=== PATIENT | male | born 1955 | race Caucasian/White ===

== ENCOUNTER 2022-06-17 08:42 | Emergency (ER) | payer MEDICARE, MEDICAID, SELFPAY ==
[2022-06-17 08:56] VITALS: BP 128/71; BP 150/70; PULSE 60; PULSE 63; RESP 16; TEMP 36.6; O2SAT 95; O2SAT 98; BMI 25.7
--- NOTE | 2022-06-17 09:44 | ED.NEUROSD ---
HPI - Neuro Symptoms/Deficit General Chief Complaint: Neuro Symptoms/Deficit Stated Complaint: R FACIAL DROOP SINCE YESTERDAY Time Seen by Provider: 06/17/22 09:07 Source: patient Mode of arrival: EMS History of Present Illness HPI Narrative: 67-year-old male arrives via EMS with complaints of right facial droop which includes some difficulty with being able to close his eye completely and has been going on since yesterday and he denies any right upper extremity numbness/tingling/weakness but states that he has been having pain across the shoulder from the neck since yesterday and has not had his shingles vaccine. He otherwise denies any fever, chills and states he is up-to-date on his COVID and influenza vaccines. Related Data Previous Rx's Medication Instructions Recorded acyclovir 400 mg tablet 400 mg PO 5XD 7 days #35 tabs 06/17/22 prednisone 20 mg tablet 60 mg PO DAILY 6 days #18 tabs 06/17/22 Allergies Allergy/AdvReac Type Severity Reaction Status Date / Time pregabalin [From Lyrica] Allergy Confusion Verified 06/17/22 09:09 Review of Systems Review of Systems: Pertinent positives and negatives as stated in HPI 10 point review of systems otherwise negative. PMFSH Past Medical History Source: nursing notes reviewed Social History Social History Smoked in Last 30 Days: Yes Use of substances other than those prescribed or required for medical reasons: No Advance Directives: No Advance Directives Information Provided: Yes Physical Exam Vital Signs: Vital Signs: Last Vital Signs Temp 98 F 06/17/22 08:56 Pulse 63 06/17/22 08:56 Resp 16 06/17/22 08:56 BP 128/71 06/17/22 08:56 Pulse Ox 95 06/17/22 08:56 O2 Del Method 06/17/22 08:56 BMI result Body Mass Index 25.7 VITAL SIGNS: Reviewed. GENERAL: Well developed, well nourished, in no acute distress. HEAD: Normocephalic/atraumatic EYES: PERRLA, EOMI EARS: Ext canals without abnormality, TMs non-bulging and non-erythematous NOSE: Nares patent bilateral,, there is no pain to the tip of the nose OROPHARYNX: no oral lesions noted, posterior pharynx clear and non-erythematous without noted tonsillar enlargement/erythema/exudates NECK: Supple, no adenopathy, there is no vesicular rash noted from the neck over the shoulder LUNGS: Normal breath sounds. No adventitious sounds or accessory muscle use. SpO2<95> CARDIOVASCULAR: Regular rate and rhythm without noted murmurs ABDOMEN: Soft, non-tender, non-distended with bowel sounds. MUSCULOSKELETAL: No tenderness, deformities, or effusions noted on gross inspection. EXTREMITIES: No cyanosis, clubbing or edema. SKIN: Inspection of the skin reveals no rashes NEUROLOGIC: Alert and oriented x 4. Strength and sensation to light touch were grossly intact x 4, weakness on eyebrow raise, unable to completely close right eye and noted droop to right corner of the mouth Course Course Course Narrative: I have reviewed the viral testing which is negative, given the presentation of pain from the neck extending across the shoulder to the right I have concerns that this may be a developing herpes zoster/shingles and then with the Walters's palsy I reviewed the chest x-ray which did not show any evidence of mass, CT scan was negative for evidence of intracranial pathology, patient received initial steroids and acyclovir here in the emergency room and then was given strict instructions on eye care as well as completing remaining course of medications for the next week. Medical Decision Making Medical Decision Making [facility] Narrative: 67-year-old male with presentation of most likely Walters's palsy but will do two view chest x-ray as well as CT of the head and viral testing. Differential Diagnosis Differential Diagnoses: The differential diagnosis associated with the presentation includes I have low clinical suspicion for any intracranial ischemic event, and doubt lung mass. Lab Data [facility] Lab Attestation statement: I reviewed the patient's lab results. Please see the course Section for discussion Labs: Lab Results 06/17/22 06/17/22 Range/Units 10:06 10:07 COVID-19 (EMILIE) Negative (Negative) COVID-19 Clin Com See Note Influenza Type A (EMPERATRIZ) Negative (Negative) Influenza Type B (EMPERATRIZ) Negative (Negative) Influenza A & B Note See Note Radiology Impression Radiologist Impression: My interpretation is in agreement with radiology impression of the imaging studies. Critical Care Time Critical Care Time Critical Care Time: Yes Total Critical Care Time: 30 Attestation: I personally attest to this time spent taking care of the patient. Discharge Plan Discharge Clinical Impression: Walters's palsy, Herpes zoster Patient Disposition: Home, Self-Care Instructions: Shingles (ED), Walters Palsy (ED) Additional Instructions: Eye protection - artificial tears, [id number], every hour while you are awake. - ophthalmic ointment at night, you should tape your eye shut at night - limit screen time due to decreased blink rate and wear protective glasses such as sunglasses while outside to protect from the light. Facial droop - 80 mg of prednisone, daily, for 1 week (this will increased acid production, blood pressure, as well as sugar levels) Pain across neck and shoulder I have concerns that this may be a developing shingles. - Acyclovir 400 mg, 5 times a day, 1 week Follow-up with your primary care provider on Saturday morning for re-evaluation further outpatient management. Return to the ER for any worsening symptoms. Prescriptions: New prednisone 20 mg tablet 60 mg PO DAILY 6 Days Qty: 18 0RF acyclovir 400 mg tablet 400 mg PO 5XD 7 Days Qty: 35 0RF Rx Instructions: space evenly during waking hours
[2022-06-17 10:30] LABS: IDNOW Serial# BCCEAD1C; Influenza A Negative (Negative); Influenza B2 Negative (Negative)
[2022-06-17 10:30] LABS: COVID-19 Test Negative (Negative); IDNOW Serial# 16C4AD1C
== END 2022-06-17 11:32 | disposition home or self-care (01) ==
PROVIDERS: Emergency Provider Student in an Organized Health Care Education/Training Program
DX: G51.0 Bell's palsy (principal); B02.9 Zoster without complications; R51.9 Headache, unspecified; Z20.822 Contact with and (suspected) exposure to COVID-19; Z79.899 Other long term (current) drug therapy
CPT/HCPCS: 70450; 71046; 87502; 87635; 99283

== ENCOUNTER 2024-09-29 20:33 | Emergency (ER) | payer MEDICARE, MEDICAID, SELFPAY ==
--- NOTE | 2024-09-29 | ECG_ITS ---
Test Reason : CP Blood Pressure : */* mmHG Vent. Rate : 58 BPM Atrial Rate : 58 BPM P-R Int : 210 ms QRS Dur : 140 ms QT Int : 464 ms P-R-T Axes : 71 -19 41 degrees QTcB Int : 455 ms Sinus bradycardia with 1st degree A-V block with Premature atrial complexes Right bundle branch block Inferior infarct , age undetermined Abnormal ECG No previous ECGs available Referred By: Generic ED Physician Electronically Signed By: Dain Nowak
--- NOTE | ~2024-09-29 | XR_ITS ---
CLINICAL HISTORY: cp 1 view chest x-ray Comparison: CR/SR - XR CHEST 2V - 06/17/22 10:16 EST Findings: No consolidation or effusion. Normal size heart. No acute fracture. IMPRESSION: 1. No acute findings. This document has been electronically signed by: Megan Trotter MD on 09/29/2024 21:34:06
--- NOTE | ~2024-09-29 | CT_ITS ---
CLINICAL HISTORY: right side chest pain r o pe, CT angiography chest with contrast. 3D Postprocessing. Comparison: CR - XR CHEST 1V - 09/29/24 21:06 EDT Findings: The heart size is normal. RV/LV ratio is normal. The thoracic aorta is normal caliber. No pulmonary artery filling defects. The visualized thyroid and mediastinum are unremarkable. No consolidation or effusion. The visualized upper abdomen is unremarkable. No acute fractures. IMPRESSION: 1. No pulmonary emboli. No acute aortic syndrome. 2. Bibasilar atelectatic/dependent changes, lungs are otherwise clear. This document has been electronically signed by: Megan Trotter MD on 09/29/2024 22:44:15
[2024-09-29 20:40] VITALS: BP 147/67; PULSE 62; RESP 18; TEMP 36.4; O2SAT 97; BMI 25.6
--- NOTE | 2024-09-29 20:56 | PC.NURSE ---
extension service specialist in charge aware of sx.
[2024-09-29 20:58] LABS: MANUAL DIFF FLAG NO
[2024-09-29 20:59] LABS: Basophils Absolute Auto 0.1 X10*3/uL (0.0-0.2); Basophils Percent Auto 0.7 % (0-2); Eosinophils Absolute Auto 0.2 X10*3/uL (0.0-0.4); Eosinophils Percent Auto 2.2 % (0-4); Hemoglobin 15.1 g/dl (14.0-18.0); Imm Gran Abs Auto 0.03 X10*3/uL (0.00-0.03); Imm Gran Pct Auto 0.3 % (0.0-0.4); Lymphocytes Absolute Auto 3.1 X10*3/uL (1.2-4.9); Mean Corpuscular HGB Conc 34.3 g/dl (31.0-36.0); Mean Corpuscular Hemoglobin 32.8 pg (27.0-33.0); Mean Corpuscular Volume 95.4 fL (80.0-98.0); Monocytes Absolute Auto 0.5 X10*3/uL (0.1-1.2); Neutrophils Absolute Auto 5.1 x10*3/uL (2.0-8.3); Neutrophils Percent Auto 56.8 % (45-73); Platelet Count 307 X10*3/uL (160-400); Red Blood Count 4.61 X10*6/uL (4.60-5.80); Red Cell Distribution Width 13.4 % (11.0-16.0)
[2024-09-29 21:15] VITALS: BP 141/63; PULSE 59; RESP 18; O2SAT 97
[2024-09-29 21:15] LABS: Alanine Aminotransferase 25 U/L (0-40); Albumin Level 4.4 g/dL (3.5-5.0); Alkaline Phosphatase 88 U/L (39-117); Anion Gap 11 (12-20); Aspartate Amino Transferase 29 U/L (5-37); Blood Urea Nitrogen 16 mg/dL (9-16); Calcium 9.5 mg/dL (8.4-10.2); Carbon Dioxide 27 mmol/L (22-29); Chloride 104 mmol/L (96-108); Creatinine Clr Calc Pharmacy 90.6; Estimated Glomerular Filt Rate > 60; Glucose Random 110 mg/dL (60-115); Potassium 4.3 mmol/L (3.3-5.1); Sodium 138 mmol/L (135-145); Total Protein 7.6 g/dL (6.5-8.0)
[2024-09-29 21:23] LABS: Troponin-I High Sensitivity < 2.7 ng/L (<3.5-35.0)
[2024-09-29 21:31] LABS: Magnesium 2.1 mg/dL (1.6-2.6)
[2024-09-29 21:38] LABS: Influenza A PCR NEGATIVE (Negative); Influenza B PCR NEGATIVE (Negative); Resp Syncy Virus RNA Qual PCR NEGATIVE (Negative); SARS COV2 PCR INHOUSE NEGATIVE (Negative)
--- NOTE | 2024-09-29 21:39 | ED_ITS ---
HPI - Chest Pain General Chief Complaint: Chest Pain Stated Complaint: Chest pain Time Seen by Provider: 09/29/24 21:30 Source: patient and family Mode of arrival: ambulatory Limitations: no limitations History of Present Illness ED Provider: DR. Mccormack HPI narrative: 69-year-old male came in with his daughter for evaluation of right-sided chest pain started 01:00 this morning woke the patient up from sleep patient was evaluated the before coming to the ED in a walk-in clinic and was advised to come to the ED for further evaluation, pain is localized to the right chest area and radiates to the back nausea and 1 time vomiting that resolved after, no fever, no chills, no recent travel, no shortness of breath, no cough, no chest wall injury or trauma, pain has been constant since 01:00, no history of intra- abdominal surgery, no history of DVT or pulmonary embolism. Patient is an active smoker no history of cough. Patient was started recently on Linzess for IBS Related Data Previous Rx's ?Medication ?Instructions ?Recorded acyclovir 400 mg tablet 400 mg PO 5XD 7 days #35 tabs 06/17/22 prednisone 20 mg tablet 60 mg (3 x 20 mg) PO DAILY 6 days 06/17/22 #18 tabs Allergies Allergy/AdvReac Type Severity Reaction Status Date / Time pregabalin [From Lyrica] Allergy Confusion Verified 09/29/24 20:43 Review of Systems 2 Review of Systems: All other systems are reviewed and are negative Constitutional: Reports as per HPI and Reports no additional constitutional complaints Eyes: Reports as per HPI and Reports no additional eye complaints Reports system reviewed and no additional complaints, except as documented Cardiovascular: Reports as per HPI and Reports no additional cardiovascular complaints Respiratory: Reports as per HPI and Reports no additional respiratory complaints Gastrointestinal: Reports as per HPI and Reports no additional gastrointestinal complaints Genitourinary: Reports no additional female genitourinary complaints Musculoskeletal: Reports no additional musculoskeletal complaints Skin/Breast: Reports system reviewed and no additional complaints, except as docu Psychiatric: Reports no additional psychiatric complaints Endocrine: Reports no additional endocrine complaints Hematologic/Lymphatic: Reports no additional hematologic/lymphatic complaints Allergic/Immunologic: Reports no additional allergic/immunologic complaints Reports system reviewed and no additional complaints, except as documented and Reports Abnormal speech present PMFSH Social History Social History Alcohol intake: never Smoked in Last 30 Days: No Use of substances other than those prescribed or required for medical reasons: No Advance Directives: No Advance Directives Information Provided: No Do you have a plan to hurt others: No Plan Physical Exam 2 Vital Signs: Vital Signs: Last Vital Signs Temp 97.5 F 09/29/24 20:40 Pulse 68 09/29/24 22:33 Resp 14 09/29/24 22:33 BP 139/67 09/29/24 22:33 Pulse Ox 97 09/29/24 22:33 O2 Del Method Room Air 09/29/24 22:33 BMI result Body Mass Index 25.6 Vital signs have been reviewed and appear to be correct. Blood pressure elevated. Heart rate normal. Respiratory rate normal. Temperature normal. Oxygen saturation normal. Appearance: Alert. Oriented X3. No acute distress. Head: Normal external exam. Normocephalic. Atraumatic. No Moran signs noted. No raccoon eyes noted Eyes: PERRLA. EOMI. Conjunctiva and sclera normal. Eyelids normal. ENT: TM's Normal. Pharynx normal. Uvula midline. Moist mucous membranes. No trismus noted. No drooling noted. No muffled voice noted. Neck: Normal inspection. Neck supple. FROM. No adenopathy. Thyroid Normal. No meningeal signs. No neck mass noted. CVS: Normal heart rate and rhythm. Heart sound normal. No murmurs noted. Pulses normal throughout. Respiratory: No respiratory distress. Painless inspiration. Breath sounds normal. No wheezes/rales/rhonchi noted. Chest nontender. No accessory muscle usage noted or decreased air movement noted. Abdomen: Soft and nontender. Bowel sounds normal in all 4 quadrants. No distention noted. No organomegaly noted. No visible injury noted. Back: No CVA tenderness. Full range of motion noted. Skin: Skin warm and dry. Normal skin color. Normal skin turgor. No rashes/lesions/lacerations noted. Extremities: No lower extremity edema. Extremities exhibit normal range of motion. Extremities nontender. Neuro: Oriented X 3. Cranial nerve exam: II-XII are grossly intact No motor deficit. No sensory deficit. Reflexes normal. Course Reevaluation(s) Reevaluation #1: 69-year-old male came in with right side chest pain, no risk for pulmonary embolism with negative D-dimer and a negative CTA. No right upper quadrant tenderness, no Dumont's sign, normal LFTs, chest CT are consistent with diagnosis of gallbladder disease. Patient is improving with Toradol and morphine. VSS, sinus bradycardia at 58 beats per minute, first-degree AV block with PACs, with no old EKG to compare. Time: 23:38 Medications Administered Discontinued Medications Generic Name Dose Route Start Last Admin Trade Name Freq PRN Reason Stop Dose Admin Iohexol 65 ml 09/29/24 22:13 09/29/24 22:14 Iohexol 350 Mg/Ml 100 Ml Infus..Btl IV 09/29/24 22:14 65 ml ONCE ONE Administration Medical Decision Making Differential Diagnosis Differential Diagnoses: The differential diagnosis associated with the presentation includes (ACS, pulmonary embolism, muscular pain, pneumonia, pneumothorax, pleural effusion, chest wall deal, rib fracture) Admission/Observation Consideration of admission/observation: Escalation of care including admission/observation considered Lab Data [facility] Lab Attestation statement: I reviewed the patient's lab results. 09/29/24 20:54 09/29/24 20:54 Labs: Lab Results 09/29/24 09/29/24 Range/Units 20:54 21:49 WBC 9.0 (4.8-10.8) X10*3/uL RBC 4.61 (4.60-5.80) X10*6/uL Hgb 15.1 (14.0-18.0) g/dl Hct 44.0 (42.0-52.0) % MCV 95.4 (80.0-98.0) fL MCH 32.8 (27.0-33.0) pg MCHC 34.3 (31.0-36.0) g/dl RDW 13.4 (11.0-16.0) % Plt Count 307 (160-400) X10*3/uL MPV 9.0 L (9.4-12.4) fL Immature Gran % (Auto) 0.3 (0.0-0.4) % Neut % (Auto) 56.8 (45-73) % Lymph % (Auto) 35.0 (20-40) % [place] % (Auto) 5.0 (2-11) % Eos % (Auto) 2.2 (0-4) % Baso % (Auto) 0.7 (0-2) % Lymph # (Auto) 3.1 (1.2-4.9) X10*3/uL [place] # (Auto) 0.5 (0.1-1.2) X10*3/uL Eos # (Auto) 0.2 (0.0-0.4) X10*3/uL Baso # (Auto) 0.1 (0.0-0.2) X10*3/uL Abs Immat Gran (auto) 0.03 (0.00-0.03) X10*3/uL Absolute Neuts (auto) 5.1 (2.0-8.3) x10*3/uL Absolute Nucleated RBC 0.000 (0.0-0.012) X10*3/uL Nucleated RBC % (auto) 0.0 (0.0-0.2) /100WBC D-Dimer High Sensitivty < 150 NG/ML Sodium 138 (135-145) mmol/L Potassium 4.3 (3.3-5.1) mmol/L Chloride 104 (96-108) mmol/L Carbon Dioxide 27 (22-29) mmol/L Anion Gap 11 L (12-20) BUN 16 (9-16) mg/dL Creatinine 0.78 (0.5-1.4) mg/dL Estim Creat Clear Calc 90.6 Estimated GFR > 60 Random Glucose 110 (60-115) mg/dL Calcium 9.5 (8.4-10.2) mg/dL Magnesium 2.1 (1.6-2.6) mg/dL Total Bilirubin 1.0 (0.0-1.0) mg/dL AST 29 (5-37) U/L ALT 25 (0-40) U/L Alkaline Phosphatase 88 (39-117) U/L Troponin I High Sens < 2.7 (<3.5-35.0) ng/L Total Protein 7.6 (6.5-8.0) g/dL Albumin 4.4 (3.5-5.0) g/dL Influenza Type A (PCR) NEGATIVE (Negative) Influenza Type B (PCR) NEGATIVE (Negative) RSV RNA Qual (PCR) NEGATIVE (Negative) SARS-CoV-2 RNA (RT-PCR) NEGATIVE (Negative) Independent Interpretation I performed an independent interpretation of an: Plain X-Ray (No acute pathology.) and CT Scan (CT angio: no pathology.) Radiology Impression Discussion of test interpretation with radiology: I have reviewed the radiologist's reading. Discharge Plan Discharge Clinical Impression: Chest pain Patient Disposition: Home, Self-Care Instructions: Chest Pain (ED) Prescriptions: No Action prednisone 20 mg tablet 60 mg PO DAILY 6 Days Qty: 18 0RF acyclovir 400 mg tablet 400 mg PO 5XD 7 Days Qty: 35 0RF Rx Instructions: space evenly during waking hours Print Language: Nepali
--- OUTSIDE RECORDS SUMMARY | 2024-09-29 21:50 | XMS_ITS | Patient Health Record ---
Author Organization [facility] Address [address] [place] [address] Care Team Providers Care Platform Power Technician Name Role Phone Rojas Barraza Unavailable [phone] Yamini Gonzalez Unavailable [phone] Allergies Allergen (clinical drug ingredient) Drug/Non Drug Allergy documented on EMR Reaction Allergy Type Onset Date Status pregabalin Lyrica Unknown Drug Allergy Active Results Component Value Reference Range Notes PMG UDS Screening Reviewed date:12/05/2023 10:21:00 AM Interpretation:appro Performing Lab:, [address] [place], [address] Notes/Report: Reason For Referral Reason Please refer to NORBERT Joseph for surgical evaluation Appointment 12/14/2022@9:10am Diagnosis 1 Primary osteoarthrit is, right shoulder (M19.011) Referral Organization [facility] Referring Provider First Name Yamini Referring Provider Last Name Carlos Referring Provider Speciality Nurse Prac titioner Referred Provider Opal TOUSSAINT Referred Provider Specialty Orthopedic S urgery General Notes Amelia Smith ([facility] ) 12/07/2022 08:21:10 AM >Per provider request referral faxed to NORBERT Joseph ph.[phone] Latrice ([facility]) 12/12/2022 12:13:55 PM >Appointment 12/14/2022 w/ Dr. Braun in [place].Flaco Latrice ([facility]) 02/06/2023 11:44:34 AM >Sent request for update.Flaco Latrice ([facility]) 04/01/2023 11:41:06 AM >Sent request for consult note, Perla Sam ([facility]) 08/15/2023 04:03:34 PM >I called and was told the patient was seen . Was transferred to the OK and left a message requesting the consult note, Perla Sam (PN) 01/08/2024 10:54:22 AM >I called and spoke to the care team coordinator scheduler and was told the patient has been seen a few times since his referral was sent over. The care team coordinator scheduler transferred me to ([place] ) and I left a requesting those consult notes., Tran Banuelos ([facility]) 01/09/2024 12:18:59 PM >Note attached Referral Priority Routine Referral Appointment Date 12/14/2022 Reason 10.29.23 RT SHOULDER SUPRASCAPULAR NB x1 Diagnosis 1 Primary osteoarthrit is, right shoulder (M19.011) Referral Organization [facility] [place] Referring Provider First Name Yamini Referring Provider Last Name Carlos Referring Provider Speciality Nurse [facility] Referred Organization [address] in [facility] Referred Provider Rojas Barraza Referred Address [address] [place] [phone], Referred Provider Specialty Pain Medicin e Procedure 1 N BLOCK INJ- SUPRASC APULAR (98902) General Notes Zara Lucero (PN) 10/04/2023 12:17:22 PM >Zara Lucero ([facility]) 10/04/2023 07:25:24 AM > Ady, please change the SS RFA appt to this SSNB. Send order back to me once this appt is booked. Thank you., Alma Delia Veras ([facility]) 10/04/2023 08:03:35 AM > fixed. Nic cunningham Pamela ([facility]) 10/04/2023 12:16:57 PM > No Authorization Required, Service Type, 1 - Medical Care, Place of Service, 24 - [facility], Service From - To Date, 2023-10-292023-12-22, Quantity, 1 Visits, Level of Service, Elective, Diagnosis Code 1, I14819 - Primary osteoarthritis right shoulder, Procedure Code 1, 91804 - NJX AA & /STRD SPRSCAP NRV, Quantity, 1 Visits, Status, NO AUTH REQUIRED, Code 54265 x1 for RT Shoulder for DOS 10/29/23, ALEXSANDRA Barraza, Dx.M19.011; OK to proceed. Referral Priority Routine Reason CXLD-01.14.24 RT CHAPARRITA ULDER SSRFA x1 Diagnosis 1 Primary osteoarthrit is, right shoulder (M19.011) Referral Organization [address] [facility] Referring Provider First Name Yamini Referring Provider Last Name Carlos Referring Provider Speciality Nurse Peng mendoza Referred Organization [address] Referred Provider Rojas Barraza Referred Address [address] [place], [place],[address],[place] Referred Provider Specialty Pain Medicin e Procedure 1 INJECTION TREATMENT OF NERVE (14600) General Notes Zara Lucero ([facility]) 12/04/2023 09:13:22 AM >Zara Lucero ([facility]) 12/04/2023 08:41:16 AM CDT > Submitted auth request w/ order and clinical notes to [facility] [employer] via website for RT SSRFA code 69912 x1 for DOS 12/31/23, ALEXSANDRA Barraza, Dx. M19.011; request pended for review under ref#[id number]., Zara Lucero ([facility]) 12/04/2023 09:10:55 AM CDT > [facility] [employer] approved RT Shoulder SSRFA code 90049 x1 from 12/31/2023 - 01/13/2024; auth#[id number]; OK to proceed. Referral Priority Routine Reason 02.11.24 RT SHOULDER SS RFA x1 Diagnosis 1 Primary osteoarthrit is, right shoulder (M19.011) Referral Organization [address] [facility] Referring Provider First Name Yamini Referring Provider Last Name Carlos Referring Provider Speciality Nurse Peng mendoza Referred Organization [address] Referred Provider Rojas Barraza Referred Address [address] [place], [place],[address],[place] Referred Provider Specialty Pain Medicin e Procedure 1 INJECTION TREATMENT OF NERVE (91112) General Notes Zara Lucero (PNM) 01/28/2024 11:02:40 AM >Zara Lucero (PNM) 12/04/2023 08:41:16 AM CDT > Submitted auth request w/ order and clinical notes to [facility] for [employer] via website for RT SSRFA code 75863 x1 for DOS 12/31/23, ALEXSANDRA Barraza, Dx. M19.011; request pended for review under ref#[id number]., Zara Lucero (PNM) 12/04/2023 09:10:55 AM CDT > [facility] for [employer] approved RT Shoulder SSRFA code 41992 x1 from 12/31/2023 - 01/13/2024; auth#[id number]; OK to proceed.Nic Pamela (PNM) 01/10/2024 03:27:11 PM CDT > Resubmitted auth request submitted to [facility] for RT SS RFA code 00678 x1 for new DOS 01/14/24, ALEXSANDRA Barraza, Dx. M19.011; request pended for review under ref#[id number]., Zara Lucero (PNM) 01/13/2024 07:04:44 AM CDT > Per [facility] website for [employer], request still in review under ref#[id number]., Alma Delia Veras (PN) 01/13/2024 03:39:03 PM CDT > Alma Delia Veras (PN) 01/13/2024 03:37:29 PM CDT >, Spoke with pt made a f/u appt. He is going to call back when in he is back in town to r/s procedure. ceNic Pamela (PNM) 01/15/2024 07:07:14 AM CDT > [employer] approved RT SS RFA code 51887 x1 from 01/14/24 to 01/27/24; auth# [id number]. Pt has rescheduled to outside the new date range, will need to resubmit again for this new DOS.Nic Pamela (PNM) 01/27/2024 08:30:50 AM CDT > Submitted auth request to [employer] for [employer] via website for RT Shoulder SS RFA code 56488 x1 for new DOS 02/11/24, ALEXSANDRA Barraza, Dx. M19.011; request pended for review under ref# [id number].Nic Pamela ([facility]) 01/28/2024 11:02:08 AM CDT > [employer] for [employer] approved RT Shoulder SS RFA code 46266 x1 from 02/11/2024 - 02/25/2024; auth# [id number]; OK to proceed with new DOS 02/11/24. Referral Priority Routine Reason CXLD-05.05.24 REPEAT LT CRFA x1 at C4-5, C5-6 Diagnosis 1 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 (M47.812) Referral Organization [facility] [place] Referring Provider First Name Yamini Referring Provider Last Name Carlos Referring Provider Speciality Nurse Prac titioner Referred Organization [address] in [facility] Referred Provider Rojas Barraza Referred Address [address] [place] [phone], Referred Provider Specialty Pain Medicin e Procedure 1 DESTROY CERV/THOR FA CET JNT (16570) Procedure 2 DESTROY C/TH FACET J NT ADDL (14649) General Notes Zara Lucero ([facility]) 04/15/2024 09:53:15 AM >Zara Lucero ([facility]) 04/13/2024 02:02:46 PM CDT > pending the 04/07/24 note being locked to submit., Zara Lucero ([facility]) 04/15/2024 09:02:31 AM CDT > Submitted auth request w/ order and clinical notes to [facility] for [employer] via website for repeat LT CRFA codes 96210 & 17878 for DOS 05/05/24, ALEXSANDRA Barraza, Dx. M47.812; request pended for review under ref# [id number].Nic Pamela ([facility]) 04/15/2024 09:52:47 AM CDT > [facility] for [employer] approved repeat LT CRFA codes 01448 & 21890 from 05/05/2024 - 05/18/2024; auth# [id number]; OK to proceed. Referral Priority Routine Reason CXLD-06.02.24 REPEAT LT LRFA x1 at L4-5, L5-S1 Diagnosis 1 Spondylosis of lumba r region without myelopathy or radiculopathy (M47.816) Referral Organization [facility] [place] Referring Provider First Name Yamini Referring Provider Last Name Carlos Referring Provider Speciality Nurse Prac titioner Referred Organization [address] [place] in [facility] Referred Provider Rojas Barraza Referred Address [address] [place], [place],[address], Referred Provider Specialty Pain Medicin e Procedure 1 DESTROY LUMB/SAC FAC ET JNT (89248) Procedure 2 DESTROY L/S FACET JN T ADDL (23898) General Notes Zara Lucero ([facility]) 05/25/2024 07:52:01 AM >Zara Lucero ([facility]) 05/12/2024 02:20:40 PM CLIENT SUPPORT ANALYST > Called [facility] ([phone]) to initiate request due to currently being locked out of their portal. Spoke to Claribel to intiate request for repeat LT LRFA codes 75856 & 71196 for DOS 06/02/24, ALEXSANDRA Barraza, Dx. M47.816; request pended for review under case# [id number]; faxed order and notes to [facility] at Attn: Nurse Reviewer at [phone]., Zara Lucero ([facility]) 05/25/2024 07:51:34 AM CLIENT SUPPORT ANALYST > [facility] LRFA codes 14649 & 96290 have been approved from 06/02/2024 - 06/15/2024; auth# [id number]; OK to proceed. Referral Priority Routine Medications Medication SIG (Take, Route, Frequency, Duration) Notes Start Date End Date Status methylPREDNISolone 4 MG as directed Orally as directed for 365 days Lugoff into 1 nostril for suspected opioid overdose. Repeat in alternate nostril if no response every 2 minutes until EMS arrives. Active Gabapentin 300 MG 2 capsule Orally three times a day for 30 days Fill when due. Exempt. 04/07/2024 Active Lisinopril 10 MG 1 tablet Orally Once a day Active methylPREDNISolone 4 MG as directed Orally as directed for 6 days Active diazePAM 10 MG as directed Orally Once a day Active Lexapro 20 MG 1 tablet Orally Once a day Active Narcan 4 MG/0.1ML as directed Nasally as directed for 30 days Active tiZANidine HCl 4 MG 1 tablet as needed Orally Three times a day Not-Taking Symbicort 160-4.5 MCG/ACT 2 puffs Inhalation Twice a day Not-Taking Naproxen 500 MG 1 tablet with food or milk as needed Orally every 12 hrs for 30 days Fill when due. Exempt. Active HYDROcodone-Acetaminophe n 10-325 MG 1 tablet as needed Orally every 6 hrs for 30 days fill when due, exempt 06/02/2024 Active Problems Problem Type SNOMED Code ICD Code Onset Dates Problem Status W/U Status Risk Notes Problem Localized, primary osteoarthritis of the shoulder region (911448747) Primary osteoarthritis, right shoulder (M19.011) Active confirmed Problem Other calcification of muscle, right shoulder (M61.411) Active confirmed Problem Impingement syndrome of shoulder region (936483615) Impingement syndrome of right shoulder (M75.41) Active confirmed Problem High risk drug monitoring status (978076542) intermodal dispatcher (current) use of opiate analgesic (Z79.891) Active confirmed Problem Cervical radiculopathy (96686932) Cervical radiculopathy (M54.12) Active confirmed Problem Lumbosacral spondylosis without myelopathy (15343299) Spondylosis of lumbar region without myelopathy or radiculopathy (M47.816) Active confirmed Problem Cervical spondylosis without myelopathy (530401423) Spondylosis of 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 (M47.812) Active confirmed Problem Arthritis of acromioclavicular joint (disorder) (444814764) AC (acromioclavicula r) joint arthritis (M19.019) Active confirmed Problem Radiculopathy due to lumbar intervertebral disc disorder (897938320328296) Radiculopathy due to disorder of intervertebral disc of lumbar spine (M51.16) Active confirmed Vital Signs Heart Rate 73 /min 04/07/2024 Blood pressure diastolic 63 mm Hg 04/07/2024 Height-cm 177.8 cm 04/07/2024 Weight-kg 80.74 kg 04/07/2024 Height 70 in 04/07/2024 Blood pressure systolic 115 mm Hg 04/07/2024 Weight 178 lbs 04/07/2024 BMI 25.54 kg/m2 04/07/2024 Procedures Procedure Date Ordered Date Performed Result Body Sit e Suprascapular NB - Right 10/03/2023 FLIP 06/24 Suprascapular RFA - Right 12/02/2023 02/11/2024 85% relief notedc Lumbar RFA - Left 04/07/2024 Approved 06/24 Encounters Encounter Location Date Provider Diagnosis [address] [facility] [address] [facility] [place] [place] [address] 10/29/2023 Rojas Barraza Primary osteoarthritis, right shoulder M19.[address] [facility] [place] [address] 02/11/2024 Rojas Barraza Primary osteoarthritis, right shoulder M19.011 [facility] [address] [place] [address] 01/14/2024 Yamini Gonzalez intermodal dispatcher (current) use of opiate analgesic Z79.891 ; Spondylosis of 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 M47.812 ; Primary osteoarthritis, right shoulder M19.011 ; Spondylosis of lumbar region without myelopathy or radiculopathy M47.816 and Radiculopathy due to disorder of intervertebral disc of lumbar spine M51.16 [facility] [address] [place] [address] 04/07/2024 Yamini Gonzalez intermodal dispatcher (current) use of opiate analgesic Z79.891 ; Spondylosis of 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 M47.812 ; Primary osteoarthritis, right shoulder M19.011 ; Spondylosis of lumbar region without myelopathy or radiculopathy M47.816 and Radiculopathy due to disorder of intervertebral disc of lumbar spine M51.16 [facility] [place] [address] [facility] [place] [address] 12/02/2023 Yamini Gonzalez long-term (current) use of opiate analgesic Z79.891 [facility] [address] [place] [address] 10/03/2023 Yamini Gonzalez Spondylosis of 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 M47.812 ; Primary osteoarthritis, right shoulder M19.011 ; long-term (current) use of opiate analgesic Z79.891 ; Spondylosis of lumbar region without myelopathy or radiculopathy M47.816 and Radiculopathy due to disorder of intervertebral disc of lumbar spine M51.16 [facility] [place] [address] [place] [address] 12/02/2023 Yamini Gonzalez intermodal dispatcher (current) use of opiate analgesic Z79.891 ; Spondylosis of 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 M47.812 ; Primary osteoarthritis, right shoulder M19.011 ; Spondylosis of lumbar region without myelopathy or radiculopathy M47.816 and Radiculopathy due to disorder of intervertebral disc of lumbar spine M51.16 [facility] [place] [address] [facility] [place] [address] 02/11/2024 Rojas Barraza [facility] [place] [address] [facility] [place] [address] 12/27/2023 Rojas Barraza [facility] [place] [address] [facility] [place] [address] 10/03/2023 Yamini Gonzalez Assessments Encounter Date Diagnosis (ICD Code) Assessment Notes Treatment Notes Treatment Clinical Notes 04/07/2024 long-term (current) use of opiate analgesic (ICD-10 - Z79.891) Requesting medications refilled w/o changesIncreased,will cont to monitor -, Narcan noted-prescribed per [place] State Guidelines Per MD treatment plan, opiate therapy continues to be Indicated per MD orders, refill and continue opiate medications w/o changes.CSMD checked w/o concern Random drug screen to be collected in the future to ensure compliance Pill count: due to fill We re-discussed the black box warning regarding the risks of combining opioids with BZDs and the role of Narcan for rescue. Advised to speak with their prescribing provider about the lowest effective dose or switching to a safer alternative, if available. Re-educated on if an opioid overdose occurs or is suspected, Narcan may temporarily reverse the effects of the opioid and help keep the patient breathing until emergency medical assistance is available. 02/11/2024 Primary osteoarthritis, right shoulder (ICD-10 - M19.011) 01/14/2024 long-term (current) use of opiate analgesic (ICD-10 - Z79.891) Requesting medications refilled w/o changesNo changes,will cont to monitor -, Narcan noted-prescribed per [place] State Guidelines Per MD treatment plan, opiate therapy continues to be Indicated per MD orders, refill and continue opiate medications w/o changes.CSMD checked w/o concern Random drug screen to be collected in the future to ensure compliance Random UDS appropriatePill count: due to fill due to procedure being pending We re-discussed the black box warning regarding the risks of combining opioids with BZDs and the role of Narcan for rescue. Advised to speak with their prescribing provider about the lowest effective dose or switching to a safer alternative, if available. Re-educated on if an opioid overdose occurs or is suspected, Narcan may temporarily reverse the effects of the opioid and help keep the patient breathing until emergency medical assistance is available. 12/02/2023 intermodal dispatcher (current) use of opiate analgesic (ICD-10 - Z79.891) Urine drug screen today is medically indicated to validate the patient's medication compliance and lack of illicit substances. Requesting medications refilled w/o changesNo changes,will cont to monitor -, Narcan noted-prescribed per [place] State Guidelines Per MD treatment plan, opiate therapy continues to be Indicated per MD orders, refill and continue opiate medications w/o changes.CSMD checked w/o concern Random drug screen to be collected to ensure compliance Pill count: appropriate We re-discussed the black box warning regarding the risks of combining opioids with BZDs and the role of Narcan for rescue. Advised to speak with their prescribing provider about the lowest effective dose or switching to a safer alternative, if available. Re-educated on if an opioid overdose occurs or is suspected, Narcan may temporarily reverse the effects of the opioid and help keep the patient breathing until emergency medical assistance is available. 12/02/2023 long-term (current) use of opiate analgesic (ICD-10 - Z79.891) 10/29/2023 Primary osteoarthritis, right shoulder (ICD-10 - M19.011) 10/03/2023 Spondylosis of 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 (ICD-10 - M47.812) Remains unchanged Medications refilled today w/o changes Alternate ice therapy/warm compress, as needed for pain Q15 minutes PRN pain Relief continues from prior RT/LT CRFA with more than 85% relief noted and continues today. 10/03/2023 Primary osteoarthritis, right shoulder (ICD-10 - M19.011) PT in the past Increased Meds refilled today w/o changes today-take as directed MDP requested ADR/SE discussed-take as directed; Toradol IM given today after consent. Pt aware to hold other NSAIDS until tomorrow. Reassess next visit. Pt is c/o increased pain to rt shouder today. Prior IASI with benefit. Prior manipulation w/o benefit. Pt is requesting to pursue RT shoulder SCNB. Risk vs beenfit discussed. Ordered today. Reassess after procedure. Alternate ice therapy/warm compress, as needed for pain Q15 minutes PRN pain 12/02/2023 Spondylosis of 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 (ICD-10 - M47.812) Remains unchanged Medications refilled today w/o changes Alternate ice therapy/warm compress, as needed for pain Q15 minutes PRN pain Relief continues from prior RT/LT CRFA with more than 85% relief noted and continues today. 10/03/2023 long-term (current) use of opiate analgesic (ICD-10 - Z79.891) Requesting medications refilled w/o changesNo changes,will cont to monitor -, Narcan noted-prescribed per [place] State Guidelines Per MD treatment plan, opiate therapy continues to be Indicated per MD orders, refill and continue opiate medications w/o changes.CSMD checked w/o concern Random drug screen to be collected in the future to ensure compliance Pill count: appropriate 01/14/2024 Spondylosis of 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 (ICD-10 - M47.812) Stable/Unchanged Medications refilled today w/o changes-take as directed Alternate ice therapy/warm compress, as needed for pain Q15 minutes PRN pain Ongoing relief from RT/LT CRFA with more than 85% relief noted and continues today. Continues HEP PT in the past 04/07/2024 Spondylosis of 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 (ICD-10 - M47.812) Increased Medications refilled today w/o changes-take as directed Alternate ice therapy/warm compress, as needed for pain Q15 minutes PRN pain The patient has had prior cervical radio radiofrequency (02/05/23) in the past with excellent pain relief ( 85 %) for greater than 6 months with a VAS score 3/10. Pt was able to do ADLs with less pain, had improved sleep, and able to do housework. The pain is now returning in the same area as prior to the treatment. Pt has been unable to tolerate noninvasive conservative care and failed to repsond to PT, NSAIDS, muscle relaxers, neuropathic medications, HEP, and ice/low heat therapy for more than 6 weeks. Physical exam suggests facet disease with pain noted on extension and lateral rotation of the spine over the facet joints in question. Given their excellent results from prior radiofrequency ablation, I will go ahead and proceed with repeat radiofrequency ablation at the same levels as previously treated without a revalidation test medial branch nerve block. Risks and benefits were explained to the patient, questions answered, and they wish to proceed. Continues HEP PT in the past 04/07/2024 Primary osteoarthritis, right shoulder (ICD-10 - M19.011) PT in the past Improved Medications refilled today w/o changes-take as directed Alternate ice therapy/warm compress, as needed for pain Q15 minutes PRN pain S/P SC RFA with more than 85% relief continuing today. VAS 3/10. Pt is able to drive easier, lift with less pain. PT in the pastMDP completed in the past-benefit noted. Prior IASI with benefit. Prior manipulation w/o benefit. 01/14/2024 Primary osteoarthritis, right shoulder (ICD-10 - M19.011) PT in the past Not controlled Meds refilled today w/o changes today-take as directed MDP completed in the past-benefit noted. .Prior IASI with benefit. Prior manipulation w/o benefit. Pending SC RFA to be r/s as pending insurande approval as pts insurnace change 12/23/23. Alternate ice therapy/warm compress, as needed for pain Q15 minutes PRN pain 12/02/2023 Primary osteoarthritis, right shoulder (ICD-10 - M19.011) PT in the past Increased Meds refilled today w/o changes today-take as directed MDP completed-benefit noted. Pt is c/o increased pain to rt shoulder today. Prior IASI with benefit. Prior manipulation w/o benefit. S/P RT SC NB with more than 85% relief x 1 week. Requesting to pursue SC RFA-risk vs benefits discussed and pt wishes to pursue, Ordered today. Alternate ice therapy/warm compress, as needed for pain Q15 minutes PRN pain 10/03/2023 Spondylosis of lumbar region without myelopathy or radiculopathy (ICD-10 - M47.816) Remains unchanged Medications refilled today w/o changes Alternate ice therapy/warm compress, as needed for pain Q15 minutes PRN painPrior RT LRFA 07/16/23 with more than 85% relief noted and VAS 3/10. Pt has been able to drive easier, walk more. Continue to monitor. Ongoing relief from LT LRFA continues today more than 85% relief noted HEP as tolerated 10/03/2023 Radiculopathy due to disorder of intervertebral disc of lumbar spine (ICD-10 - M51.16) Remains unchanged Medications refilled today w/o changesAlternate ice therapy/warm compress, as needed for pain Q15 minutes PRN painPrior RT LRFA 07/16/23 with more than 85% relief noted and VAS 3/10. Pt has been able to drive easier, walk more. Continue to monitor. Ongoing relief from LT LRFA continues today more than 85% relief noted HEP as tolerated 12/02/2023 Spondylosis of lumbar region without myelopathy or radiculopathy (ICD-10 - M47.816) Remains unchanged Medications refilled today w/o changes Alternate ice therapy/warm compress, as needed for pain Q15 minutes PRN painPrior RT LRFA 07/16/23 with more than 85% relief noted and VAS 3/10. Pt has been able to drive easier, walk more. Continue to monitor. Ongoing relief from LT LRFA continues today more than 85% relief noted HEP as tolerated 01/14/2024 Spondylosis of lumbar region without myelopathy or radiculopathy (ICD-10 - M47.816) Stable/Unchanged Medications refilled today w/o changes-take as directed Alternate ice therapy/warm compress, as needed for pain Q15 minutes PRN pain Ongoing relief from RT/LT LRFA with more than 85% relief noted and continues today. Continues HEP PT in the past 04/07/2024 Spondylosis of lumbar region without myelopathy or radiculopathy (ICD-10 - M47.816) Increased Medications refilled today w/o changes-take as directed Alternate ice therapy/warm compress, as needed for pain Q15 minutes PRN pain -Pt is s/p SC RFA with more than 85% relief continuing today. VAS 3/10. Pt is able to drive easier, lift with less pain. The patient has had prior lumbar radio radiofrequency (07/16/23) in the past with excellent pain relief ( 85 %) for greater than 6 months with a VAS score 3/10. Pt was able to do ADLs with less pain, had improved sleep, and able to do housework. The pain is now returning in the same area as prior to the treatment. Pt has been unable to tolerate noninvasive conservative care and failed to repsond to PT, NSAIDS, muscle relaxers, neuropathic medications, HEP, and ice/low heat therapy for more than 6 weeks. Physical exam suggests facet disease with pain noted on extension and lateral rotation of the spine over the facet joints in question. Given their excellent results from prior radiofrequency ablation, I will go ahead and proceed with repeat radiofrequency ablation at the same levels as previously treated without a revalidation test medial branch nerve block. Risks and benefits were explained to the patient, questions answered, and they wish to proceed. Continues HEP PT in the past 04/07/2024 Radiculopathy due to disorder of intervertebral disc of lumbar spine (ICD-10 - M51.16) Stable/Unchanged Medications refilled today w/o changes-take as directed Alternate ice therapy/warm compress, as needed for pain Q15 minutes PRN pain Consider DON with LRAD Ongoing relief from RT/LT LRFA with more than 85% relief noted and continues today. Continues HEP PT in the past 01/14/2024 Radiculopathy due to disorder of intervertebral disc of lumbar spine (ICD-10 - M51.16) Stable/Unchanged Medications refilled today w/o changes-take as directed Alternate ice therapy/warm compress, as needed for pain Q15 minutes PRN pain Consider DON with LRAD Ongoing relief from RT/LT LRFA with more than 85% relief noted and continues today. Continues HEP PT in the past 12/02/2023 Radiculopathy due to disorder of intervertebral disc of lumbar spine (ICD-10 - M51.16) Remains unchanged Medications refilled today w/o changesAlternate ice therapy/warm compress, as needed for pain Q15 minutes PRN painPrior RT LRFA 07/16/23 with more than 85% relief noted and VAS 3/10. Pt has been able to drive easier, walk more. Continue to monitor. Ongoing relief from LT LRFA continues today more than 85% relief noted HEP as tolerated Plan Of Treatment Pending Test Test Name Order Date DME 04/10/2022 Lumbar RFA - Left 04/07/2024 Suprascapular NB - Right 10/03/2023 X-ray Shoulder Min 2V, Right 06/09/2021 X-ray Cervical Sp 4-5V 11/02/2020 PNM Shoulder Injection - Right 2 Insurance Providers Payer Name Payer Address Payer Phone Subscriber Number Group Number Insured Name Patient Relationship to Insured Coverage Start Date Coverage End Date [facility] [employer] [place] [address] [address] [place] [address] [id number] Fermin Fletcher Self - patient is the insured 4 [facility] MEDICAID 1 [facility] [address] [place] [address] [phone] [id number] Fermin Fletcher Self - patient is the insured 3 Medications Administered Medication Instructions Date of Administration Dosage Notes Ketorolac Tromethamine 10/03/2023 60 mg Medical (General) History Medical History History ICD Code Radiculopathy Surgical History Surgery Date(Month/Year) cervical cyst Hospitalization History Reason Date(Month/

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
--- OUTSIDE RECORDS SUMMARY | 2024-09-29 21:50 | XMS_ITS | Continuity of Care Document ---
Author Organization [facility] Address [address] [place] [phone] Phone Care Team Providers Care Blood Bank Credit Clerk Name Role Phone Kush Braun MD Unavailable Unavailable Allergies, Adverse Reactions, Alerts Substance Reaction Status Criticality No Known Allergies Active No Inform ation Medications Medication Instructions Dosage Effective Dates (start - stop) Status Comments Medrol (Omari) 4 mg tablets in a dose pack take by oral route as directed per package instructions 0.00 - Active diazepam 10 mg tablet take 1 tablet by oral route 3 times every day 10 MG - Active HYDROCODONE-ACETAM INOPHEN (unknown strength) take 1 tablet by oral route every 6 hours as needed for pain Not Available - Active GABAPENTIN (unknown strength) take 1 capsule by oral route 3 times every day Not Available - Active Procedures Procedure Date EST PATNT OV DTL EXAM Medications - Current Meds Documented X-RAY OF C-SPINE 2 OR 3 VIEWS EST PATNT OV DTL EXAM X-RAY OF SHOULDER (COMPLETE) 2 V MIN. NEW PATNT OV MOD COMP Advance Directives Directive Yes / No Effective Date File Name No Information Encounters Encounter Description Practice Location Reason(s) For Visit Diagnoses Date Provider Providers Copied on Encounter EST PATNT OV DTL EXAM [facility], [address], [place], [place], [id number], [place] tel:[phone] [facility] Follow Up of Right shoulder (chief complaint) Tear of right rotator cuff, unspecified tear extent, unspecified whether traumaticRadi culopathy, cervical region 3 Kade Currie. [address] [place] [address], [address], [place], [place], [id number] , [place]. tel:[phone] Referring Provider: Kush Jimenez, [address] [place] [address] [address], [place], [address] . tel:[phone] [facility] [address] [place] [address], [id number], [place] tel:[phone] [facility] Geronimo Rt Shoulder (chief complaint) Radiculopathy , cervical region 3 Kade Currie. [address] [place] [address], [address], [place], [place], [id number] , [place]. tel:[phone] Referring Provider: Kush Jimenez, [address] [place] [address] [address], [place], [address] . tel:[phone] [facility] [address], [place], [place], [id number], [place] tel:[phone] [facility] Right shoulder pain (chief complaint) Pain in right shoulderTear of right rotator cuff, unspecified tear extent, unspecified whether traumaticRadi culopathy, cervical region 3 Kade Currie. [address] [place] [address], [address], [place], [place], [id number] , [place]. tel:[phone] Family History Family Member Type Diagnosis Age At Onset No Information Payers Payer name Insurance type Covered republican ID Authoriza timackenzie(s) Medicare [id number] Medicaid [facility] [id number] Social History Type Description Quantity Date Captured Comments Alcohol Use Details Unknown Caffeine Use Details Unknown Tobacco Use Status No Information Smoking Status No Information Sex Male Chief Complaint And Reason For Visit From encounter dated '01/21/2023 11:40'. Follow Up of Right shoulder (chief complaint) Reason For Referral Reason For Referral No Information History Of Present Illness Encounter Date Complaint History Of Prese nt Illness Follow Up of Right shoulder Geronimo Rt Shoulder Right shoulder pain Functional Status Date Functional Assessmen t No Information Instructions Date Instruction Additional Infor karlos - Medication refills must be requested before 4pm Saturday through Saturday Related to Radiculopathy, cervical region - Patient education available at [email or web address] on the Education tab Related to Radiculopathy, cervical region Steroid instructions Assessments Type Assessment Date assessment Tear of right rotato r cuff, unspecified tear extent, unspecified whether traumatic assessment Radiculopathy, cervical region J Patient Care Teams Name Effective Dates (start - stop) Status Members No Information
--- OUTSIDE RECORDS SUMMARY | 2024-09-29 21:51 | XMS_ITS ---
Author Organization [facility] Address [address] [place] [address] Care Team Providers Care Carnival Worker Name Role Phone Rojas Barraza Unavailable [phone] REASON FOR VISIT CERVICAL RFA- LEFT C4-5, 5-6 Medications Medication SIG (Take, Route, Frequency, Duration) Notes Start Date End Date Status Lisinopril 10 MG 1 tablet Orally Once a day Active Naproxen 500 MG 1 tablet with food or milk as needed Orally every 12 hrs for 30 days Fill when due. Exempt. Active Gabapentin 300 MG 2 capsule Orally three times a day for 30 days Fill when due. Exempt. 04/07/2024 Active methylPREDNISolone 4 MG as directed Orally as directed for 365 days [place] into 1 nostril for suspected opioid overdose. Repeat in alternate nostril if no response every 2 minutes until EMS arrives. Active methylPREDNISolone 4 MG as directed Orally as directed for 6 days Active tiZANidine HCl 4 MG 1 tablet as needed Orally Three times a day Not-Taking Lexapro 20 MG 1 tablet Orally Once a day Active HYDROcodone-Acetaminophe n 10-325 MG 1 tablet as needed Orally every 6 hrs for 30 days fill when due, exempt 05/05/2024 Active diazePAM 10 MG as directed Orally Once a day Active Narcan 4 MG/0.1ML as directed Nasally as directed for 30 days Active Symbicort 160-4.5 MCG/ACT 2 puffs Inhalation Twice a day Not-Taking Encounters Encounter Location Date Provider Diagnosis [facility] [address] [place] [address] 05/05/2024 Rojas Barraza 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 M47.812 Assessments Encounter Date Diagnosis (ICD Code) Assessment Notes Treat ment Notes Treatment Clinical Notes 05/05/2024 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 NPO status was confirmed SEDATION: ____ MEDICATION ADMINISTERED: 2% Lidocaine 1m l per level to anesthetize skin and subcutaneous tissues 2% Lidocaine 1ml per level for RFA sites PREP: Site was prepped usi ng standard aseptic technique NEEDLE TYPE: 25 gauge, 1.5 inch PROCEDURE: With alternatives, r isks, and benefits having been reviewed and written informed consent obtained, the patient was brought into the procedure room and placed in a lateral position on the procedure table. Monitors were placed including a grounding pad over the hip. The skin overlying the paramedial aspect of the cervical spine was prepped in a sterile fashion. Allowed to dry prior to injection and draped in a sterile fashion. Lidocaine was administered through a 1.5-inch 25-gauge needle as a local skin and subcutaneous anesthetic over each injection site. Next, a radio frequency cannula with a 5mm active tip was placed mid body of the targeted vertebrae(s) tonsillar pillar in a sagittal plane. Proper cannula placement was confirmed by a 2.0 Hz motor stimulation testing utilizing [employer]'s MG2 Generator and subjective-objective patient feedback. Proper needle confirmation was then viewed in both AP and lateral views. Motor testing did not reveal ventral ramus stimulation. When confirmation was satisfactory, 2% Lidocaine was injected through the cannula to minimize discomfort. Medial nerve lesioning was performed at 80 degrees Celsius for 60 seconds. The cannula(s) was afterwards removed intact at each injection site. Afterwards, the patient was transferred to stepdown in stable condition and was monitored for approximately 20 minutes. The patient was then discharged home with a ride and post-procedure instructions, including directions to contact the office should severe pain, signs of infection, or any new motor-sensory deficits develop.___ cm probes, Load numbers ___, Indicator strip black, Grounding pad placed on ____ LEVEL/LATERALITY: Level (Cervical 1):: C4-5 Laterality:: Left Level (Cervical 2):: C5-6 Laterality:: Left CANNULA TYPE: 22 gauge curved radi o frequency cannula with 5mm active tip Vitals (1) TIME: BLOOD PRESSURE, mmHq (1): HEART RATE, BPM (1): RESPIRATION/MIN (1): ____ O2 SAT PERCENT (1): ____ O2 L/min (via NC) (1): ____ EKG (1): ___ ETCO2 (1): ___ PAIN LEVEL (1-10) (1): __/10 RN ROOM NUMBER: ____ PROCEDURE NURSE: ____ EDUCATIONAL TECHNOLOGY SPECIALIST: ____ X-RAY CONTRACT MANAGER: ____ IN ROOM TIME: ____ TIME OUT TIME: ____ START TIME: ___ END TIME: ___ OUT TIME: ___ ECG: ____ SAFE SURGERY CHECKLIST: Completed PRE-OP DIAGNOSIS: M47.812 POST-OP DIAGNOSIS: Same IV FLUID: None POSITION: Lateral ESTIMATED BLOOD LOSS: Less than 1mL EQUIPMENT ISSUES: No Discharge DISCHARGE TIME: ____ IN POST-OP: ____ DISCHARGE NURSE: ____ POST-OP PROCEDURE: Patient transported to post procedure area alert and oriented x3, skin warm and dry. Airway patent and ventilating deep and regular. Denies any weakness or numbness and able to move all extremities and ambulating well. Band-Aid dressing dry and intact. Discharge instructions (oral and written) given to patient and family. Patient verbalized understanding HEPLOCK: Hep-Lock discontinue d side clear no active bleeding and catheter intact PATIENT ACCOUNTANCY PROFESSOR: ____ PATIENT STABLE: Yes ALL QUESTIONS ADDRESSED: Yes Progress Notes * Fermin FLETCHERDOB:1955 ( 69 yo M)Acc No.[id number]:05/05/2024 Patient:?Fermin FLETCHER Provider:?Rojas Barraza MD :1955???Age:68 Y???Sex:Male Damaso e:05/05/2024 Address:[address] [place], [place] [id number] Subjective: * Chief Complaints: * ???1. CERVICAL RFA- LEFT C4- 5, 5-6. * HPI: ???RN History of Present Complaint:?NPO STATUS:?Last liquids at Midnight.?RESPIRATORY:?Denies Hx.?CARDIAC:?Denies Hx.?GI:?Denies Hx.?PLANNED PROCEDURE VERIFIED:?Yes.?BLOOD THINNERS:?Denies.?ANTIBIOTICS:?None taken in the last 2 weeks.?PRE-OP NURSE:?____.?SEDATION:?___.?BLOODBOURNE PATHOGENS:?None.?DIABETES:?No.?STIMULATORS:?____.?LMP:?N/A.?PRE-OP TIME:?____.? * ROS:?General/Constitutional:?Infection?denies.?Bleeding?denies.?Unusual bleeding?denies.?Chills?denies.?Fever?denies.?Respiratory:?Shortness of breath at rest?denies.?Cardiovascular:?Chest pain?denies.? * Medical History:? * Medications:?Taking Narcan 4 MG/0.1ML Liquid as directed Nasally as directed , Taking diazePAM 10 MG Gel as directed Orally Once a day , Taking Lexapro 20 MG Tablet 1 tablet Orally Once a day , Taking Lisinopril 10 MG Tablet 1 tablet Orally Once a day , Taking methylPREDNISolone 4 MG Tablet Therapy Pack as directed Orally as directed , Taking methylPREDNISolone 4 MG Tablet Therapy Pack as directed Orally as directed , Notes to Pharmacist: [place] into 1 nostril for suspected opioid overdose. Repeat in alternate nostril if no response every 2 minutes until EMS arrives., Taking Gabapentin 300 MG Capsule 2 capsule Orally three times a day , Notes to Pharmacist: Fill when due. Exempt., Taking Naproxen 500 MG Tablet 1 tablet with food or milk as needed Orally every 12 hrs , Notes to Pharmacist: Fill when due. Exempt., Taking HYDROcodone-Acetaminophen 10-325 MG Tablet 1 tablet as needed Orally every 6 hrs , Notes to Pharmacist: fill when due, exempt, Not-Taking Symbicort 160-4.5 MCG/ACT Aerosol 2 puffs Inhalation Twice a day , Not-Taking tiZANidine HCl 4 MG Tablet 1 tablet as needed Orally Three times a day , Medication List reviewed and reconciled with the patient Objective: * Vitals:? Assessment: * Assessment: 1.?Spondylosis of cervical r egion without myelopathy or radiculopathy - M47.812 (Primary)??? Plan: * Treatment: * Procedures:?Vitals:?(1) TIME:? .?BLOOD PRESSURE, mmHq (1):? .?HEART RATE, BPM (1):? .?RESPIRATION/MIN (1):?____.?O2 SAT PERCENT (1):?____.?O2 L/min (via NC) (1):?____.?EKG (1):?___.?ETCO2 (1):?___.?PAIN LEVEL (1-10) (1):?__/10.?Surgical Procedure:?MIPS MEASURES: ?Fluoroscopy Time Under CR:?15 seconds ?Number of Images:?2 image(s) ?CONSENT:?Alternatives, risks, and benefits were reviewed with the patient, and written informed consents were obtained.?NPO status was confirmed.?SEDATION:?____.?LEVEL/LATERALITY: ?Level (Cervical 1):?C4-5 ?Laterality:?Left ?Level (Cervical 2):?C5-6 ?Laterality:?Left ?MEDICATION ADMINISTERED:?2% Lidocaine 1ml per level to anesthetize skin and subcutaneous tissues ?2% Lidocaine 1ml per level for RFA sites .?NEEDLE TYPE:?25 gauge, 1.5 inch.?CANNULA TYPE:?22 gauge curved radio frequency cannula with 5mm active tip.?PREP:?Site was prepped using standard aseptic technique.?PROCEDURE:?With alternatives, risks, and benefits having been reviewed and written informed consent obtained, the patient was brought into the procedure room and placed in a lateral position on the procedure table. Monitors were placed including a grounding pad over the hip. The skin overlying the paramedial aspect of the cervical spine was prepped in a sterile fashion. Allowed to dry prior to injection and draped in a sterile fashion. Lidocaine was administered through a 1.5-inch 25-gauge needle as a local skin and subcutaneous anesthetic over each injection site. Next, a radio frequency cannula with a 5mm active tip was placed mid body of the targeted vertebrae(s) tonsillar pillar in a sagittal plane. Proper cannula placement was confirmed by a 2.0 Hz motor stimulation testing utilizing [employer]'s MG2 Generator and subjective-objective patient feedback. Proper needle confirmation was then viewed in both AP and lateral views. Motor testing did not reveal ventral ramus stimulation. When confirmation was satisfactory, 2% Lidocaine was injected through the cannula to minimize discomfort. Medial nerve lesioning was performed at 80 degrees Celsius for 60 seconds. The cannula(s) was afterwards removed intact at each injection site. Afterwards, the patient was transferred to [facility] in stable condition and was monitored for approximately 20 minutes. The patient was then discharged home with a ride and post-procedure instructions, including directions to contact the office should severe pain, signs of infection, or any new motor- sensory deficits develop. ?___ cm probes, Load numbers ___, Indicator strip black, Grounding pad placed on ____.?RN:?ROOM NUMBER:?____.?PROCEDURE NURSE:?____.?EDUCATIONAL TECHNOLOGY SPECIALIST:?____.?X-RAY CONTRACT MANAGER:?____.?IN ROOM TIME:?____.?TIME OUT TIME:?____.?START TIME:?___.?END TIME:?___.?OUT TIME:?___.?ECG:?____.?SAFE SURGERY CHECKLIST:?Completed.?PRE-OP DIAGNOSIS:?M47.812.?POST-OP DIAGNOSIS:?Same.?IV FLUID:?None.?POSITION:?Lateral.?ESTIMATED BLOOD LOSS:?Less than 1mL.?EQUIPMENT ISSUES:?No.?Discharge:?DISCHARGE TIME:?____.?IN POST-OP:?____.?DISCHARGE NURSE:?____.?POST-OP PROCEDURE:?Patient transported to post procedure area alert and oriented x3, skin warm and dry. Airway patent and ventilating deep and regular. Denies any weakness or numbness and able to move all extremities and ambulating well. Band-Aid dressing dry and intact. Discharge instructions (oral and written) given to patient and family. Patient verbalized understanding.?HEPLOCK:?Hep-Lock discontinued side clear no active bleeding and catheter intact.?PATIENT ACCOUNTANCY PROFESSOR:?____.?PATIENT STABLE:?Yes.?ALL QUESTIONS ADDRESSED:?Yes.? * Procedure Codes:?27324 DESTR OY CERV/THOR FACET JNT, 80023 DESTROY C/TH FACET JNT ADDL, G8907 Pt doc no events on discharg, G8918 PT NO PREOP ORD IV ABX SSI PROPH, G9500 Rad expos ind/exp tm doc * * Electronic signature of Lenny Barraza MD on 09/29/2024 at 08:51 PM CDT Sign off status: Pending * Provider:?Rojas Barraza MD Date:?2023 Generated for Mc joyce/Donnie/Kathi on:?09/29/2024 08:51 PM CDT History and Physical Notes * HPI (History of Present Illness) Category Sub-Category Detail Notes RN History of Present Complaint NPO STATUS: Last liquids at Midnight RESPIRATORY: Denies Hx CARDIAC: Denies Hx GI: Denies Hx PLANNED PROCEDURE VERIFIED: Yes BLOOD THINNERS: Denies ANTIBIOTICS: None taken in the la st 2 weeks PRE-OP NURSE: ____ SEDATION: ___ BLOODBOURNE PATHOGENS: None DIABETES: No STIMULATORS: ____ LMP: N/A PRE-OP TIME: ____
--- OUTSIDE RECORDS SUMMARY | 2024-09-29 21:51 | XMS_ITS ---
Author Organization [facility] Address [address] [place] [address] Care Team Providers Care Offender Job Retention Specialist Name Role Phone Rojas Barraza [phone] REASON FOR VISIT Lumbar Radiofrequency Ablation, Left, Alma Delia Veras (PNM) 06/01/2024 03:20:34 PM CHEMICAL LAB TECHNICIAN > Pt canceled procedure does not want. He is out of town for the holidays and wants to see how long he can do without injections and medications. ce Medications Medication SIG (Take, Route, Frequency, Duration) Notes Start Date End Date Status methylPREDNISolone 4 MG as directed Orally as directed for 365 days [place] into 1 nostril for suspected opioid overdose. Repeat in alternate nostril if no response every 2 minutes until EMS arrives. Active Gabapentin 300 MG 2 capsule Orally three times a day for 30 days Fill when due. Exempt. 04/07/2024 Active tiZANidine HCl 4 MG 1 tablet as needed Orally Three times a day Not-Taking Symbicort 160-4.5 MCG/ACT 2 puffs Inhalation Twice a day Not-Taking Naproxen 500 MG 1 tablet with food or milk as needed Orally every 12 hrs for 30 days Fill when due. Exempt. Active Lisinopril 10 MG 1 tablet Orally Once a day Active methylPREDNISolone 4 MG as directed Orally as directed for 6 days Active diazePAM 10 MG as directed Orally Once a day Active Lexapro 20 MG 1 tablet Orally Once a day Active Narcan 4 MG/0.1ML as directed Nasally as directed for 30 days Active HYDROcodone-Acetaminophe n 10-325 MG 1 tablet as needed Orally every 6 hrs for 30 days fill when due, exempt 06/02/2024 Active Encounters Encounter Location Date Provider Diagnosis [facility] [address] [facility] [place] [address] 06/02/2024 Rojas Barraza 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 Monitors were placed, including a grounding pad. Site was prepped and draped using standard aseptic technique. The skin and subcutaneous tissue(s) at the procedure site(s) were locally anesthetized. Next, radio frequency cannula was introduced and fluoroscopically guided to the junction of the applicable superior articular process(es) and transverse process(es) using an oblique approach. Proper cannula placement at each procedure site was confirmed by motor stimulation testing utilizing a radiofrequency generator, [employer]'s MG2, and subjective-objective patient feedback. When confirmation was satisfactory, the medication mixture was injected to minimize discomfort before a medial nerve lesion was performed for ___ seconds at ___ degree Celsius. The cannula(s) were removed intact. The procedure site(s) were cleansed, the Band-aid(s) were applied. The patient tolerated the procedure well and there were no complications. Afterwards, the patient was transferred from the procedure room in stable condition and discharged home with a ride and post-procedure instructions, including directions to contact the office should severe pain, signs of infection, or any new motor-sensory deficits develop___ cm probes, Load numbers ___, Indicator strip black, Grounding pad placed on ___ LEVEL/LATERALITY: Level (Lumbar 1):: L4-5 Laterality:: Left Level (Lumbar 2):: L5-S1 Laterality:: Left CANNULA TYPE: 20 gauge curved radi o frequency cannula with 10mm active tip Vitals (1) TIME: BLOOD PRESSURE, mmHq (1): HEART RATE, BPM (1): RESPIRATION/MIN (1): ____ O2 SAT PERCENT (1): ____ O2 L/min (via NC) (1): ____ EKG (1): ___ ETCO2 (1): ___ PAIN LEVEL (1-10) (1): __/10 RN ROOM NUMBER: ____ PROCEDURE NURSE: ____ IMPORT SPECIALIST: ____ X-RAY ROAD TEST EXAMINER: ____ IN ROOM TIME: ____ TIME OUT TIME: ____ START TIME: ___ END TIME: ___ OUT TIME: ___ ECG: ____ SAFE SURGERY CHECKLIST: Completed PRE-OP DIAGNOSIS: M47.816 POST-OP DIAGNOSIS: Same IV FLUID: None POSITION: Prone ESTIMATED BLOOD LOSS: Less than 1mL EQUIPMENT [...] no active bleeding and catheter intact PATIENT CONTRACTING ENGINEER: ____ PATIENT STABLE: Yes ALL QUESTIONS ADDRESSED: Yes Progress Notes * Fermin FLETCHERDOB:1955 ( 69 yo M)Acc No.[id number]:06/02/2024 Patient:?Fermin FLETCHER Provider:?Rojas Barraza MD :1955???Age:68 Y???Sex:Male Damaso e:06/02/2024 [id number] Subjective: * Chief Complaints: * ???1. Lumbar Radiofrequency Ablation, Left. 2. Alma Delia Veras (PNM) 06/01/2024 03:20:34 PM CHEMICAL LAB TECHNICIAN > Pt canceled procedure does not want. He is out of town for the holidays and wants to see how long he can do without injections and medications. ce. * HPI: ???RN History of Present Complaint:?NPO STATUS:?Last liquids at Midnight, Last solids at Midnight.?RESPIRATORY:?Denies Hx.?CARDIAC:?Denies Hx.?GI:?Denies Hx.?PLANNED PROCEDURE VERIFIED:?Yes.?BLOOD [...] Orally as directed , Notes to Pharmacist: [place] into 1 nostril for suspected opioid overdose. [...] * Vitals:? 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 Plan: * Treatment: * Procedures:?Vitals:?(1) TIME:? .?BLOOD PRESSURE, mmHq (1):? .?HEART RATE, BPM (1):? .?RESPIRATION/MIN (1):?____.?O2 SAT PERCENT (1):?____.?O2 L/min (via NC) (1):?____.?EKG (1):?___.?ETCO2 (1):?___.?PAIN LEVEL (1-10) (1):?__/10.?Surgical Procedure:?MIPS MEASURES: ?Fluoroscopy Time Under CR:?15 seconds ?Number of Images:?2 image(s) ?CONSENT:?Alternatives, risks, and benefits were reviewed with the patient, and written informed consents were obtained.?NPO status was confirmed.?SEDATION:?____.?LEVEL/LATERALITY: ?Level (Lumbar 1):?L4-5 ?Laterality:?Left ?Level (Lumbar 2):?L5-S1 ?Laterality:?Left ?MEDICATION ADMINISTERED:?2% Lidocaine 1ml per level to anesthetize? skin and subcutaneous tissues?2% Lidocaine 1ml per level for RFA sites? ? ?.?NEEDLE TYPE:?25 gauge, 1.5 inch.?CANNULA TYPE:?20 gauge curved radio frequency cannula with 10mm active tip.?PREP:?Site was prepped using standard aseptic technique.?PROCEDURE:?The patient was brought into the procedure room and placed on the procedure table. Monitors were placed, including a grounding pad. Site was prepped and draped using standard aseptic technique. The skin and subcutaneous tissue(s) at the procedure site(s) were locally anesthetized. Next, radio frequency cannula was introduced and fluoroscopically guided to the junction of the applicable superior articular process(es) and transverse process(es) using an oblique approach. Proper cannula placement at each procedure site was confirmed by motor stimulation testing utilizing a radiofrequency generator, [employer]'s MG2, and subjective-objective patient feedback. When confirmation was satisfactory, the medication mixture was injected to minimize discomfort before a medial nerve lesion was performed for ___ seconds at ___ degree Celsius. The cannula(s) were removed intact. The procedure site(s) were cleansed, the Band-aid(s) were applied. The patient tolerated the procedure well and there were no complications. Afterwards, the patient was transferred from the procedure room in stable condition and discharged home with a ride and post- procedure instructions, including directions to contact the office should severe pain, signs of infection, or any new motor-sensory deficits develop ?___ cm probes, Load numbers ___, Indicator strip black, Grounding pad placed on ___.?RN:?ROOM NUMBER:?____.?PROCEDURE NURSE:?____.?IMPORT SPECIALIST:?____.?X-RAY ROAD TEST EXAMINER:?____.?IN ROOM TIME:?____.?TIME OUT TIME:?____.?START TIME:?___.?END TIME:?___.?OUT TIME:?___.?ECG:?____.?SAFE SURGERY CHECKLIST:?Completed.?PRE-OP DIAGNOSIS:?M47.816.?POST-OP DIAGNOSIS:?Same.?IV FLUID:?None.?POSITION:?Prone.?ESTIMATED BLOOD LOSS:?Less than 1mL.?EQUIPMENT ISSUES:?No.?Discharge:?DISCHARGE TIME:?____.?IN POST-OP:?____.?DISCHARGE [...] clear no active bleeding and catheter intact.?PATIENT CONTRACTING ENGINEER:?____.?PATIENT STABLE:?Yes.?ALL QUESTIONS ADDRESSED:?Yes.? * Procedure Codes:?30477 DESTR OY LUMB/SAC FACET JNT, 71903 DESTROY L/S FACET JNT ADDL, G8907 Pt doc no events on discharg, G8918 PT NO PREOP ORD IV ABX SSI PROPH, G9500 Rad expos ind/exp tm doc * * Electronic signature of Lenny Barraza MD on 09/29/2024 at 08:51 PM CDT Sign off status: Pending * Provider:?Rojas Barraza MD Date:?2023 Generated for Mc joyce/Donnie/eTransmitting on:?09/29/2024 08:51 PM CDT History and Physical Notes * HPI (History of Present Illness) Category Sub-Category Detail Notes RN History of Present Complaint NPO STATUS: Last liquids at Midnight, Last solids at Midnight RESPIRATORY: Denies Hx CARDIAC: Denies Hx GI: Denies Hx PLANNED PROCEDURE VERIFIED: Yes BLOOD THINNERS: Denies ANTIBIOTICS: None taken in the la st 2 weeks PRE-OP NURSE: ____ SEDATION: ___ BLOODBOURNE PATHOGENS: None DIABETES: No STIMULATORS: ____ LMP: N/A PRE-OP TIME: ____
--- OUTSIDE RECORDS SUMMARY | 2024-09-29 21:51 | XMS_ITS ---
Author Organization [facility] Address [address] [place] [address] Care Team Providers Care Settlement Processor Name Role Phone Rojas Barraza Unavailable [phone] CarlosYamini Unavailable [phone] Allergies Allergen (clinical drug ingredient) Drug/Non Drug Allergy documented on EMR Reaction Allergy Type Onset Date Status pregabalin Lyrica Unknown Drug Allergy Active REASON FOR VISIT Post-Op Follow Up Medications Medication SIG (Take, Route, Frequency, Duration) Notes Start Date End Date Status Lisinopril 10 MG 1 tablet Orally Once a day Active Lexapro 20 MG 1 tablet Orally Once a day Active diazePAM 10 MG as directed Orally Once a day Active methylPREDNISolone 4 MG as directed Orally as directed for 365 days [place] into 1 nostril for suspected opioid overdose. Repeat in alternate nostril if no response every 2 minutes until EMS arrives. Active methylPREDNISolone 4 MG as directed Orally as directed for 6 days Active Naproxen 500 MG 1 tablet with food or milk as needed Orally every 12 hrs for 30 days Fill when due. Exempt. Active HYDROcodone-Acetaminophe n 10-325 MG 1 tablet as needed Orally every 6 hrs for 30 days fill when due, exempt 04/07/2024 Active Gabapentin 300 MG 2 capsule Orally three times a day for 30 days Fill when due. Exempt. 04/07/2024 Active Narcan 4 MG/0.1ML as directed Nasally as directed for 30 days Active tiZANidine HCl 4 MG 1 tablet as needed Orally Three times a day Not-Taking Symbicort 160-4.5 MCG/ACT 2 puffs Inhalation Twice a day Not-Taking Vital Signs Blood pressure systolic 115 mm Hg 04/07/20 24 Blood pressure diastolic 63 mm Hg 024 Heart Rate 73 /min 04/07/2024 Height 70 in 04/07/2024 Weight 178 lbs 04/07/2024 BMI 25.54 kg/m2 04/07/2024 Height-cm 177.8 cm 04/07/2024 Weight-kg 80.74 kg 04/07/2024 Procedures Procedure Date Ordered Date Performed Result Body Sit e Lumbar RFA - Left 04/07/2024 Approved 06/24 Encounters Encounter Location Date Provider Diagnosis [facility] [address] [place] [address] 04/07/2024 Yamini [facility] (current) use of opiate analgesic Z79.891 ; Spondylosis of 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 M47.812 ; Primary osteoarthritis, right shoulder M19.011 ; Spondylosis of lumbar region without myelopathy or radiculopathy M47.816 and Radiculopathy due to disorder of intervertebral disc of lumbar spine M51.16 Assessments Encounter Date Diagnosis (ICD Code) Assessment Notes Treat ment Notes Treatment Clinical Notes 04/07/2024 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 04/07/2024 Spondylosis of cervical region without myelopathy [...] IASI with benefit. Prior manipulation w/o benefit. 04/07/2024 Spondylosis of lumbar region without myelopathy [...] today. Continues HEP PT in the past Plan Of Treatment Medication Medication Name Sig Start Date Stop Date Notes ZTlido 1.8 % 1 patch remove after 12 hours Externally Once a day for 30 days apply to low back, shoulders, neck Naproxen 500 MG 1 tablet with food o r milk as needed Orally every 12 hrs for 30 days Fill when due. Exempt. HYDROcodone-Acetaminoph en 10-325 MG 1 tablet as needed Orally every 6 hrs for 30 days 04/07/2024 fill when due, exempt Gabapentin 300 MG 2 capsule Orally thr ee times a day for 30 days 04/07/2024 Fill when due. Exempt. Treatment Notes Assessment Notes Primary osteoarthritis, right shoulder P T in the past Pending Test Test Name Order Date Lumbar RFA - Left 04/07/2024 Next Appt Details Follow Up: 4 Weeks, Reason: Progress Notes * Fermin FLETCHERDOB:1955 ( 68 yo M)Acc No.[id number]:04/07/2024 Patient:?Fermin FLETCHER Appointment Provider:?Yamini Gonzalez NP :[id number]???Age:68 Y???Sex:Male Damaso e:04/07/2024 Address:[address] [place], [place] [id number] Subjective: * Chief Complaints: * ???Post-Op Follow Up * HPI: ???History of Present Illness:? --Pt presents in office today at [facility] for continued treatment of their chronic pain condition. -Location of pain is noted to be in neck, Lsx and shoulders.? -Continues HEP. PT in the past. -Pt is s/p SC RFA with more than 85% relief continuing today. VAS 3/10. Pt is able to drive easier, lift with less pain.? -The patient has had prior cervical radio?radiofrequency (02/05/23) in the past with excellent pain [...] questions answered, and they wish to proceed. -The patient has had prior lumbar radio?radiofrequency (07/16/23)?in the past with excellent pain relief ( [...] questions answered, and they wish to proceed. --Pain is described as dull throbbing ache, sharp in neck. Denies CRAD.? --Pain in low back is a nagging ache with stabbing, burning that is localized to low back. Denies LRAD.? --Pain in shoulder is an throbbing ache that comes and goe.? --Pain is better with medications, CRFA, LRFA, SCRFA, repositioning. --Worse with twisting, bending down, standing a long time, extension. --Denies any new falls, denies changes in loss of bowel/bladder, no saddle anesthesia, denies acute urinary retention, denies changes in weakness. --Pain medication allows patient to be more functional. --Requesting a refill today. Adverse Effects - none reported today --Activity - Medication allows increased ability for normal day-to-day activities, chores and/or work with less pain.--Analgesia - produces reasonable analgesic effects --Aberrant Behaviors - none noted --Affect - normal affect, calm and cooperative --We will keep total morphine equivalent dosing as low as possible and consider other treatments, modalities, therapy and dose reductions on an ongoing basis. ? Without medications, pain is 8/10 and with medications, pain is 4-6/10. Patient reports that medications help to sleep, be more active, do home chores. Denies receiving PAIN medication from other providers. Current [facility]: 02/13/2024 HYDROCODONE-ACETAMIN 10-325 MG 120.00 30 187 [id number] 02/11/2024 [id number] 40.00 N N [id number] 03 02/13/2024 GABAPENTIN 300 MG CAPSULE 180.00 30 187 [id number] 02/11/2024 [id number] - N N [id number] 03 01/14/2024 GABAPENTIN 300 MG CAPSULE 180.00 30 187 [id number] 01/14/2024 [id number] - N N [id number] 03 01/14/2024 HYDROCODONE-ACETAMIN 10-325 MG 120.00 30 187 [id number] 01/14/2024 [id number] 40.00 N N [id number] 03 12/03/2023 HYDROCODONE-ACETAMIN 10-325 MG 120.00 30 187 [id number] 12/02/2023 [id number] 40.00 N N [id number] 03 12/03/2023 GABAPENTIN 300 MG CAPSULE 180.00 30 1879 [id number] 12/02/2023 [id number] - N N [id number] 03 Permission received from patient to release the office note today, copy of imaging, if requested, narcotic agreement and consent for treatment to?[facility]. [facility] [place]. This is good for todays date of service only. ???Pill Count:?Medication:?02/13/2024 HYDROCODONE-ACETAMIN 10-325 MG 120.00 (0) M367.?Imaging Studies/Clinical Pathways:? =====Past Results (Pain Mgmt) : Sep 21, 2021 15:00 Acc num [id number] unknown PROCEDURE: MRI RIGHT SHOULDER WITHOUT CONTRAST HISTORY:Primary osteoarthritis, unspecified shoulder Impingement syndrome of right shoulder Other calcification of muscle, right shoulder chronic r shoulder pngetting worseno inj no surg no cano prior M19.019 Primary osteoarthritis, unspecified shoulder M75.41 Impingement syndrome of right shoulder M61.411 Other calcification of muscle, right shoulder COMPARISONS: RIGHT shoulder series 06/09/2021. FINDINGS: There is tendinopathy supraspinatus tendon insertion with full-thickness tear of the far anterior fibers insertion measuring 9 mm in AP dimension with no significant retraction. Tendinopathy infraspinatus and subscapularis tendon insertions which are intact. Teres minor tendon insertion intact and unremarkable. No fatty atrophy rotator cuff muscle belly. Visualized portions deltoid musculature unremarkable. The bicipital labral anchor is intact. No definite labral tear, detachment, or para labral cyst. Moderate hypertrophic degenerative changes acromioclavicular joint with reactive edema-like marrow signal. Marrow signal otherwise unremarkable shoulder. No fracture or osteonecrosis. No significant articular cartilage defect or joint effusion. Small amount of fluid subacromial-subdeltoid bursa. IMPRESSION: 1. Tendinopathy supraspinatus tendon insertion with full-thickness tear of the far anterior fibers insertion measuring 9 mm in AP dimension with no significant retraction. 2. Tendinopathy infraspinatus and subscapularis tendon insertions which are intact. 3. Moderate hypertrophic degenerative changes acromioclavicular joint with reactive edema-like marrow changes. == 11/02/2020 - PROCEDURE: CERVICAL SPINE, 4 VIEWS FLEXION AND EXTENSION COMPARISONS: 2016. FINDINGS: Prevertebral soft tissues: Normal. Alignment in neutral position: Minimal scoliosis. 2 mm retrolisthesis C3, 4 mm retrolisthesis of C5. Vertebral movement with flexion and extension: Slight interval reduction with flexion of the C5 retrolisthesis. Vertebral body height: Normal. Disk spaces: Moderate disc space narrowing with osteophytes C5-C7. Fracture(s): None. Facets: Facet arthropathy throughout the mid cervical spine. Bone mineralization: Normal. IMPRESSION: Degenerative changes similar prior. Minimal stability C5-6. 07/19/2017: MRI cervical spine IMPRESSION per radiologist: 1. At C2-3: Mild effacement of the anterior thecal sac. No significant neural foraminal narrowing. 2. At C3-4: Mild spinal canal narrowing centrally. Mild bilateral neural foraminal narrowing. 3. At C4-5: Mild spinal canal narrowing. Mild LEFT lateral recess narrowing. Mild LEFT and minimal RIGHT neural foraminal narrowing 4. At C5-6: Mild to moderate spinal canal narrowing. Moderate bilateral neural foraminal narrowing. 5. At C6-7: Mild spinal canal narrowing. Mild to moderate LEFT and mild RIGHT neural foraminal narrowing. --------- 07/19/17 -MRI lumbar spine - IMPRESSION per radiologist: 1. Multilevel degenerative changes with spinal canal and neural foraminal narrowing as described above, overall similar compared to prior exam. 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 Please see the body of the report for full details. 11/20/2018: Xray of the Thoracic Spine Mild scoliosis with mild degenerative changes. TREATMENT COURSE: Lumbar RFA - Right 07/02/2023 Cervical RFA - Left 02/05/2023 85% relief Lumbar RFA - Right 10/30/2022 85% relief noted Lumbar RFA - Left 07/10/2022 85% relief noted MBNB - Right 09/04/2022 85% relief noted 04/10/2022 DME Cervical RFA - Right 05/08/2022 85% relief noted MBNB - Right 03/13/22 85% relief x 1 day MBNB Right 01/02/22 85% relief per p PNM Shoulder Injection 10/10/2021 PNM Lumbar RFA - Left L3,4,5 85% relief noted PNM Cervical RFA - LEFT 60% BENEFIT PNM Lumbar RFA -LEFT L3,4,5 90% relief. ???Violations:? Violations (Pain Mgmt) : 10/10/21 Short pill count: 11 pills short. Pt admits overuse. Pt is counselled on taking medications as prescribed and to use other modalities for increased pain. Reviewed NA agreement in detail and that continuied short pill counts and overuse of medications may/will result in tapering, d/c of medications or NNTP in the future. Pt verbalized understanding of this and of NA agreement. Violation given. 10/30/21 Short pill count: 19 pills short. Pt denies overuse, states that he left meds at home. The patient was counseled that pill counts are part of narcotic contract. Failure to show or bring medications in when requested and to each appt can result in discontinuation of opioids. Understanding was verbalized. In the future, pt will have to present meds prior to refill being sent.;. ???Pain Management:?Pt understands TREATMENT OBJECTIVES: To allow the patient to maximize andmaintain optimal physical activity and function. To allow the patient toreturn to productive activity at home, socially, and/or at work. To allow thepatient to increase the patient's ability to self-manage pain and handleDecrease pain, and Referral to a Specialist or Surgeon as indicated. Re-discussed with pt today that our goal at [facility] is to increase function, decrease pain and to minimize opioid therapy.Risks and benefits of medication discussed with patient. including Tolerance, physical dependence, increased sensitivity to pain, constipation, nausea, vomiting, dry mouth, sleepiness, dizziness, confusion, depression, lower limits of testosterone that can result in less sex drive, energy, strength, itching, and sweating. Pt verbalized understanding. Reviewed narcotic contract with patient. Discussed presenting meds at each visit in correct bottle. Discussed presenting to office for appts Q28-30 days and to present prior to due to fill date,The patient was counseled on how to take medications properly-as prescribed and how to keep medications from being taken by others. Cannot take medications from old prescriptions, other persons, or fill prescriptions from other doctors without permission. Cannot not drink alcohol or use illicit substances-includes THC and most CBD products. Pt verbalized understanding of NA. Discussed in detal with the pt and educated patient on the FDA Black Box Warning- which is the strongest warning label regarding risk of respiratory depression if prior history of serious breathing difficulties that can lead to in patients who use gabapentanoids with opioid pain medicines or other drugs that depress the central nervous system ([employer]), or those who have underlying respiratory impairment, such as patients with chronic obstructive pulmonary disease (COPD) or the elderly. Pt verbalized understanding. Re-educated that opiates should be used with extreme caution in Respiratory Insufficiency due to increased risk of Chronic Hypoxemic Respiratory Failure which can occur with use of an opiate. Pt verbalized understanding. Re-educated on if an opioid overdose occurs or is suspected, Narcan may temporarily reverse the effects of the opioid and help keep the patient breathing until emergency medical assistance is available.?? .? * ROS:?General/Constitutional:?Chills?denies.?Fever?denies.?Ophthalmologic:?Blurry vision?denies.?ENT:?Decreased hearing?denies.?Respiratory:?Shortness of breath at rest?denies.?Cardiovascular:?Chest pain?denies.?Gastrointestinal:?Constipation?denies.?Diarrhea?denies.?Nausea?denies.?Vomiting?denies.?Genitourinary:?Bladder Incontinence?denies.?Skin:?Rash?denies.?Neurologic:?Balance difficulty?denies.?Psychiatric:?Anxiety?denies.?Depressed mood?denies.?Difficulty sleeping?denies.? * Medical History:? 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 * Social History:?Drugs/Alcohol:?OPIOID RISK TOOL?Date Completed?04/07/2024 ?Sex:?Male ?Family Hx of Substance Abuse?Prescription Drugs (4) ?Personal History of Substance Abuse?None (0) ?Age Between 16 and 45?No (0) ?History of Pre-Adolescent Sexual Abuse?No (0) ?Psychological Disease?Depression (1) ?TOTAL SCORE?Moderate Risk (4-7) ?DAST-10 - These questions refer to drug use in the past 12 months?Have you used drugs other than those required for medical reasons??no ?Do you use more than one drug at a time??no ?Are you able to stop using drugs when you want to??yes ?Have you had blackouts or flashbacks as a result of drug use??no ?Do you feel bad or guilty about your drug use??no ?Does your spouse (or parents) ever complain about your involvement with drugs??no ?Have you neglected your family because of your use of drugs??no ?Have you engaged in illegal activities in order to obtain drugs??no ?Have you ever experienced withdrawal symptoms (felt sick) when you stopped taking drugs??no ?Have you had medical problems as a result of your drug use (e.g. memory loss, hepatitis, convulsions, bleeding, etc.)??no ?SCORE: 1 point for each question answered yes except question 3 where no receives 1 point.?0 No problems reported; no suggested action at this time * Medications:?TakingGabapenti n 300 MG Capsule 2 capsule Orally three times a day , Notes to Pharmacist: Fill when due. Exempt.Naproxen 500 MG Tablet 1 tablet with food or milk as needed Orally every 12 hrs , Notes to Pharmacist: Fill when due. Exempt.HYDROcodone-Acetaminophen 10-325 MG Tablet 1 tablet as needed Orally every 6 hrs , Notes to Pharmacist: fill when due, exemptZTlido 1.8 % Patch 1 patch remove after 12 hours Externally Once a day , Notes to Pharmacist: apply to low back, shoulders, neckNarcan 4 MG/0.1ML Liquid as directed Nasally as directed diazePAM 10 MG Gel as directed Orally Once a day Lexapro 20 MG Tablet 1 tablet Orally Once a day Lisinopril 10 MG Tablet 1 tablet Orally Once a day methylPREDNISolone 4 MG Tablet Therapy Pack as directed Orally as directed methylPREDNISolone 4 MG Tablet Therapy Pack as directed Orally as directed , Notes to Pharmacist: [place] into 1 nostril for suspected opioid overdose. Repeat in alternate nostril if no response every 2 minutes until EMS arrives.Taking Gabapentin 300 MG Capsule 2 capsule Orally three times a day , Notes to Pharmacist: Fill when due. Exempt.Taking Naproxen 500 MG Tablet 1 tablet with food or milk as needed Orally every 12 hrs , Notes to Pharmacist: Fill when due. Exempt.Taking HYDROcodone-Acetaminophen 10-325 MG Tablet 1 tablet as needed Orally every 6 hrs , Notes to Pharmacist: fill when due, exemptTaking ZTlido 1.8 % Patch 1 patch remove after 12 hours Externally Once a day , Notes to Pharmacist: apply to low back, shoulders, neckTaking Narcan 4 MG/0.1ML Liquid as directed Nasally as directed Taking diazePAM 10 MG Gel as directed Orally Once a day Taking Lexapro 20 MG Tablet 1 tablet Orally Once a day Taking Lisinopril 10 MG Tablet 1 tablet Orally Once a day Taking methylPREDNISolone 4 MG Tablet Therapy Pack as directed Orally as directed Taking methylPREDNISolone 4 MG Tablet Therapy Pack as directed Orally as directed , Notes to Pharmacist: [place] into 1 nostril for suspected opioid overdose. Repeat in alternate nostril if no response every 2 minutes until EMS arrives.Not-TakingSymbicort 160-4.5 MCG/ACT Aerosol 2 puffs Inhalation Twice a day tiZANidine HCl 4 MG Tablet 1 tablet as needed Orally Three times a day Medication List reviewed and reconciled with the patientNot-Taking Symbicort 160-4.5 MCG/ACT Aerosol 2 puffs Inhalation Twice a day Not-Taking tiZANidine HCl 4 MG Tablet 1 tablet as needed Orally Three times a day Medication List reviewed and reconciled with the patient * Allergies:?Domenica: Allergyshun [Allergies Verified] Objective: * Vitals:?Ht: 70 in, Wt:178lbs , BMI:25.54Index, BP:115/63mm Hg, HR:73/min, Weight Change: -13 lbs, Total Weight Change: -6 lbs, Ht-cm: 177.8 cm, Wt-k.74 kg. * Examination: ???General Examination: ?GENERAL APPEARANCE:?pleasant, well nourished, well developed, in no acute distress.?HEAD:?normocephalic , without signs of trauma.?EYES:?pupils equal, round, reactive to light and accommodation.?NECK/THYROID:?neck supple , trachea midline.?SKIN:?normal , no suspicious lesions.?RESPIRATORY:?normal respiratory rate and pattern with no distress.?ABDOMEN:?not distended.?STATION AND GAIT:?Antalgic Gait Observed.?NEUROLOGIC:?alert and oriented , cooperative with exam , Cognitive Function Normal , Memory unimpaired.?PSYCH:?good eye contact , thought process logical, goal directed.?Cervical Spine/Neck: ?C SPINE EXAM:?Cervical spine showed tenderness on palpation , Cervical spine pain was elicited by right-sided extension , Cervical spine pain was elicited by right-sided rotation , Cervical spine pain was elicited by left-sided extension , Cervical spine pain was elicited by left-sided rotation. Pain is axial in nature. Negative spurlings..?Lumbar Spine/Lower back: ?EXAM:?Lumbar spine rotation to the left was abnormal , Lumbar spine rotation to the right was abnormal , Lumbar spine pain increased with extension , Lumbar spine pain increased with rotation. Pain appears to be axial in nature..?PALPATION:?Tenderness to palpation from L1-L5.? 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 Plan: * Treatment: 2.?jail (current) use o f opiate analgesic? Clinical Notes: Requesting medications refilled w/o changesIncreased,will cont to monitor -, Narcan noted-prescribed per [place] State Guidelines Per MD treatment plan, opiate [...] breathing until emergency medical assistance is available. ?? 3.?Primary osteoarthritis, r ight shoulder? Notes: PT in the past?? Clinical Notes: Improved Medications refilled today w/o changes-take as directed Alternate ice therapy/warm compress, as needed for pain Q15 minutes PRN pain S/P SC RFA with more than 85% relief continuing today. VAS 3/10. Pt is able to drive easier, lift with less pain. PT in the pastMDP completed in the past-benefit noted. Prior IASI with benefit. Prior manipulation w/o benefit. ?? 4.?Spondylosis of lumbar reg ion without myelopathy or radiculopathy? Refill Naproxen Tablet, 500 MG, 1 tablet with food or milk as needed, Orally, every 12 hrs, 30 days, 60 Tablet, Refills 2, Notes to Pharmacist: Fill when due. Exempt..?Procedure: Lumbar RFA - Left?[facility] Clinical Notes: Increased Medications refilled today w/o changes-take as [...] to proceed. Continues HEP PT in the past?? 5.?Radiculopathy due to diso rder of intervertebral disc of lumbar spine? Refill Gabapentin Capsule, 300 MG, 2 capsule, Orally, three times a day, 30 days, 180 Capsule, Refills 2, Notes to Pharmacist: Fill when due. Exempt.;?Refill HYDROcodone-Acetaminophen Tablet, 10-325 MG, 1 tablet as needed, Orally, every 6 hrs, 30 days, 120 Tablet, Refills 0, Notes to Pharmacist: fill when due, exempt;?Stop ZTlido Patch, 1.8 %, 1 patch remove after 12 hours, Externally, Once a day, 30 days, 30 patches, Notes to Pharmacist: apply to low back, shoulders, neck.?? Clinical Notes: Stable/Unchanged Medications refilled today w/o changes-take as directed Alternate ice therapy/warm compress, as needed for pain Q15 minutes PRN pain Consider DON with LRAD Ongoing relief from RT/LT LRFA with more than 85% relief noted and continues today. Continues HEP PT in the past?? * Procedure Codes:? * Follow Up:?4 Weeks * Review Notes: Rojas Barraza 2024-04-15 18:07:34FrRojas rogers 04/15/2024 6:07:34 PM >* Electronically co-signed by Rojas Barraza MD on 04/15/2024 at 06:07 PM CDT Sign off status: Completed true * Appointment Provider:?Yamini Gonzalez NP Date:?04/07/2024 Generated for Printing/Faxing/eTransmitting on:?09/29/2024 08:50 PM CDT History and Physical Notes * HPI (History of Present Illness) Category Sub-Category Detail Notes Pain Management Pt understands T REATMENT OBJECTIVES: To allow the patient to maximize andmaintain optimal physical activity and function. To allow the patient toreturn to productive activity at home, socially, and/or at work. To allow thepatient to increase the patient's ability to self-manage pain and handleDecrease pain, and Referral to a Specialist or Surgeon as indicated. Re-discussed with pt today that our goal at [facility] is to increase function, decrease pain and to minimize opioid therapy.Risks and benefits of medication discussed with patient. including Tolerance, physical dependence, increased sensitivity to pain, constipation, nausea, vomiting, dry mouth, sleepiness, dizziness, confusion, depression, lower limits of testosterone that can result in less sex drive, energy, strength, itching, and sweating. Pt verbalized understanding. Reviewed narcotic contract with patient. Discussed presenting meds at each visit in correct bottle. Discussed presenting to office for appts Q28-30 days and to present prior to due to fill date,The patient was counseled on how to take medications properly-as prescribed and how to keep medications from being taken by others. Cannot take medications from old prescriptions, other persons, or fill prescriptions from other doctors without permission. Cannot not drink alcohol or use illicit substances-includes THC and most CBD products. Pt verbalized understanding of NA. Discussed in detal with the pt and educated patient on the FDA Black Box Warning- which is the strongest warning label regarding risk of respiratory depression if prior history of serious breathing difficulties that can lead to in patients who use gabapentanoids with opioid pain medicines or other drugs that depress the central nervous system ([employer] [facility]), or those who have underlying respiratory impairment, such as patients with chronic obstructive pulmonary disease (COPD) or the elderly. Pt verbalized understanding. Re-educated that opiates should be used with extreme caution in Respiratory Insufficiency due to increased risk of Chronic Hypoxemic Respiratory Failure which can occur with use of an opiate. Pt verbalized understanding. Re-educated on if an opioid overdose occurs or is suspected, Narcan may temporarily reverse the effects of the opioid and help keep the patient breathing until emergency medical assistance is available. Pill Count Medication: 02/13/2024 HYDRO CODONE-ACETAMIN 10-325 MG 120.00 (0) M367 Examination Category Sub-Category Detail Notes Cervical Spine/Neck C SPINE EXAM: Cervical spi ne showed tenderness on palpation , Cervical spine pain was elicited by right-sided extension , Cervical spine pain was elicited by right-sided rotation , Cervical spine pain was elicited by left-sided extension , Cervical spine pain was elicited by left-sided rotation. Pain is axial in nature. Negative spurlings. Lumbar Spine/Lower back PALPATION: Tenderne ss to palpation from L1-L5 EXAM: Lumbar spine rotatio n to the left was abnormal , Lumbar spine rotation to the right was abnormal , Lumbar spine pain increased with extension , Lumbar spine pain increased with rotation. Pain appears to be axial in nature. General Examination GENERAL APPEARANCE: pleasant , well nourished, well developed, in no acute distress HEAD: normocephalic , with out signs of trauma EYES: pupils equal, round, reactive to light and accommodation NECK/THYROID: neck supple , trache a midline ABDOMEN: not distended NEUROLOGIC: alert and oriented , cooperative with exam , Cognitive Function Normal , Memory unimpaired SKIN: normal , no suspicio us lesions PSYCH: good eye contact , t hought process logical, goal directed STATION AND GAIT: Antalgic Gait Observ ed RESPIRATORY: normal respiratory r ate and pattern with no distress
[2024-09-29 22:11] LABS: D Dimer High Sensitivity < 150 NG/ML
[2024-09-29] MEDS: iohexoL 350 MG/ML 100 ML INFUS..BTL 65 ML IV (22:14)
[2024-09-29 22:33] VITALS: BP 139/67; PULSE 68; RESP 14; O2SAT 97
--- NOTE | 2024-09-29 22:43 | PC.NURSE ---
Pt. c/o CP, informed pt. that RN will inform MD for pain management, pt. refused that offer.
--- NOTE | 2024-09-29 23:24 | PC.NURSE ---
Report given to JT Sher.
[2024-09-29] MEDS: Morphine Sulfate 2 MG/ML CARTRIDGE IVPUSH (23:45)
[2024-09-29] MEDS: Ketorolac Tromethamine 15 MG/ML VIAL IVPUSH (23:45)
[2024-09-29 23:56] VITALS: BP 139/67; PULSE 68; RESP 14; TEMP 36.8; O2SAT 97
== END 2024-09-29 23:57 | disposition home or self-care (01) ==
PROVIDERS: Emergency Provider Emergency Medicine
DX: R07.9 Chest pain, unspecified (principal); R00.1 Bradycardia, unspecified; Z03.818 Encounter for observation for suspected exposure to other biological agents ruled out
CPT/HCPCS: 0241U; 36415; 71045; 71275; 80053; 83735; 84484; 85025; 85379; 93005; 96374; 96375; 99284; 99285; J1885; J2270; Q9967

== ENCOUNTER → 2024-09-29 20:35 | Outpatient (BNV) | payer MEDICARE, MEDICAID, SELFPAY | PROVIDERS: Emergency Provider Emergency Medicine; Visit Provider Internal Medicine Cardiovascular Disease | DX: I44.0 Atrioventricular block, first degree (principal); I49.1 Atrial premature depolarization; I45.10 Unspecified right bundle-branch block; R00.1 Bradycardia, unspecified | CPT/HCPCS: 93010 ==

== ENCOUNTER → 2024-09-29 21:00 | Outpatient (BNV) | payer MEDICARE, MEDICAID, SELFPAY | PROVIDERS: Emergency Provider Emergency Medicine; Visit Provider Student in an Organized Health Care Education/Training Program | DX: R07.9 Chest pain, unspecified (principal) | CPT/HCPCS: 71045; 71275 ==